=== PATIENT | male | born 1970 | race African-American/Black ===

== ENCOUNTER 2020-05-19 11:01 | Emergency (ER) | payer OTHER, SELFPAY ==
--- NOTE | ~2020-05-19 | CT_ITS ---
EXAMINATION: CT abdomen pelvis wo con DATE: 05/19/2020 13:29 INDICATION: Bilateral flank pain. Hematuria. TECHNIQUE: Computed tomography (CT) of the abdomen and pelvis was performed without intravenous contr ast. Automated exposure control and iterative reconstruction technique were employed. The dose-length product was 1645.45 mGy-cm. COMPARISON: CT abdomen and pelvis 08/22/2019, 05/23/2016 FINDINGS: The visualized portions of the lung bases demonstrate minimal atelectasis. No pleural effus ion. The heart size is normal. No pericardial effusion. There is diffuse hepatic steatosis. There are changes of cholecystectomy. Again seen is an accessory spleen abutting the tail of the pancreas. The pancreas, adrenal glands, and left kidney are normal. There is a 3 mm stone in right kidney. The pro state is mildly enlarged. There are no dilated loops of bowel. The appendix is normal. There are no p athologically enlarged lymph nodes. There is no free intraperitoneal fluid. There is mild thoracolumb ar spondylosis. IMPRESSION: 1. 3 mm nonobstructing right kidney stone. Reviewed, dictated and finalized at location B.
[2020-05-19 11:08] VITALS: BP 186/95; PULSE 77; RESP 18; TEMP 35.8; O2SAT 99
[2020-05-19 11:47] LABS: Basophils Percent Auto 0.4 % (0.2-1.2); Eosinophils Absolute Auto 0.1 K/mm3 (0-0.3); Eosinophils Percent Auto 1.3 % (0-4.4); Hematocrit 43.1 % (42.0-52.0); Immature Granulocyte Absolute 0.04 K/mm3 (0.00-0.031); Immature Granulocyte Percent A 0.6 % (0-0.5); Lymphocytes Absolute Auto 1.67 K/mm3 (0.9-3.2); Lymphocytes Percent Auto 23.7 % (18.3-44.2); Mean Corpuscular HGB Conc 30.2 g/dl (32-36); Mean Corpuscular Hemoglobin 23.3 pg (26-34); Mean Corpuscular Volume 77.4 fl (80-100); Mean Platelet Volume 10.1 fl (7.4-10.4); Monocytes Absolute Auto 0.5 K/mm3 (0.1-0.6); Monocytes Percent Auto 6.4 % (2.6-8.5); Neutrophils Absolute Auto 4.8 K/mm3 (1.3-6.7); Neutrophils Percent Auto 67.6 % (45.5-73.1); Platelet Count Result 323 k/mm3 (150-375); Red Blood Count 5.57 M/mm3 (4.6-6.20); Red Cell Distribution Width 15.4 % (11.5-14.5)
--- NOTE | 2020-05-19 12:00 | ED.BACK ---
HPI - Back Pain/Injury General Chief Complaint: Urogenital-Male <Kaci Dewitt PA-C - Last Filed: 05/19/20 14:59> Stated Complaint: flank pain <VANESSA Siddiqui Last Filed: 05/19/20 14:59> Time Seen by Provider: 05/19/20 11:33 <VANESSA Siddiqui Last Filed: 05/19/20 14:59> Source: patient <VANESSA Siddiqui Last Filed: 05/19/20 14:59> Mode of arrival: ambulatory <VANESSA Siddiqui Last Filed: 05/19/20 14:59> Limitations: no limitations <VANESSA Siddiqui Last Filed: 05/19/20 14:59> History of Present Illness HPI Narrative: This is a 49 year old male that presents to the ER for flank pain x 4 days. No known injury or trauma. Was told he had blood in his urine at his PCP office. Was started on Flomax, pain medication and an antibiotic due to his history of kidney stones. Reports the pain does feel similar to past kidney stones. Also reports nausea. Denies fever, abdominal pain, vomiting, or dysuria. <VANESSA Siddiqui Last Filed: 05/19/20 14:59> Related Data Home Medications: Home Medications Medication Instructions Recorded Confirmed metoclopramide HCl 10 mg PO BID 08/22/19 05/15/20 <VANESSA Siddiqui Last Filed: 05/19/20 14:59> Allergies/Adverse Reactions: Allergies Allergy/AdvReac Type Severity Reaction Status Date / Time gadobenic acid Allergy Severe Anaphylaxis Verified 05/19/20 11:17 [From CONTRAST-MRI] Iodinated Contrast Media Allergy Severe Anaphylaxis Verified 05/19/20 11:17 iohexol Allergy Severe Anaphylaxis Verified 05/19/20 11:17 [From CONTRAST - CT, XRAY] prochlorperazine AdvReac Severe Agitated Verified 05/19/20 11:17 <VANESSA Siddiqui Last Filed: 05/19/20 14:59> Review of Systems Review of Systems: Narrative: CONSTITUTIONAL: Denies fever GASTROINTESTINAL: Reports nausea. Denies abdominal pain, vomiting GENITOURINARY: Reports hematuria. Denies dysuria MUSCULOSKELETAL: Reports back pain <Kaci Dewitt PA-C - Last Filed: 05/19/20 14:59> All systems reviewed & are unremarkable except as noted in HPI and below <Kaci Dewitt PA-C - Last Filed: 05/19/20 14:59> [facility]LY [facility] Past Medical History Medical History: Medical History (Updated 05/19/20 @ 14:58 by Kaci Dewitt PA-C) Acute low back pain Bowel obstruction Concussion CPAP (continuous positive airway pressure) dependence Diverticulitis Erectile dysfunction HTN (hypertension) Kidney stone Migraines RIKI (obstructive sleep apnea) Peripheral neuropathy Primary insomnia Pulmonary embolism left lung following lap jae in July 2018, on Xarelto Sleep apnea T2DM (type 2 diabetes mellitus) <Kaci Dewitt PA-C - Last Filed: 05/19/20 14:59> Surgical History Surgical History: Surgical History (Updated 08/23/19 @ 10:16 by Godfrey Rojas MD) Hx of cholecystectomy laparoscopic cholecystectomy on July of 2018 <Kaci Dewitt PA-C - Last Filed: 05/19/20 14:59> Social History Social History: Social History Social History: Pt designates his , teagan means as his surrogate decision maker. Full code status. Smoking status: Never smoker Alcohol intake: never Substance use: never Substance use type: does not use Gender identity (if verbalized by the patient): Male Spiritual care concerns: No Agree to blood products: Yes <Kaci Dewitt PA-C - Last Filed: 05/19/20 14:59> Exam Narrative: Exam Narrative: GENERAL: Well-appearing, obese, and in no acute distress. HEAD: Normocephalic, atraumatic. EYES: EOMI. CHEST: Clear to auscultation. No respiratory distress. No wheezes rales or rhonchi HEART: Regular rate and rhythm. No murmur heard. Normal peripheral pulses. ABDOMEN: Soft, nontender, nondistended, normal active bowel sounds. No CVA tenderness BACK: No midline spinal tenderness EXTREMITIES: Normal range of motion.
[2020-05-19 12:03] LABS: Add Urine Microscopic? YES; Appearance Urine Cloudy (Clear); Bacteria Urine Trace /hpf; Bilirubin Urine Negative (Negative); Blood Urine 2+ (Negative); Color Urine Yellow (Yellow); Glucose Urine UA 1+ mg/dL (Negative); Ketones Urine Negative (Negative); Leukocyte Esterase Ur Negative LEU/UL (Negative); Mucus Urine Rare /lpf; Nitrate Urine Negative (Negative); Protein Urine 3+ mg/dL (Negative); RBC Urine >75 /hpf (0-2); Specific Grav Ur 1.018 (1.001-1.035); Squamous Epithelial Cell Urine Few /hpf (Few); Urobilinogen Urine Negative mg/dL (<2.0)
[2020-05-19 12:07] LABS: Anion Gap 11 mmol/L (8-16); Blood Urea Nitrogen 10 mg/dL (9-20); Calcium 8.8 mg/dL (8.4-10.2); Carbon Dioxide 28 mmol/L (22-30); Chloride 94 mmol/L (98-107); Estimated CRCL calculation 239 ml/min; Estimated Glomerular Filt Rate > 60; Glucose 233 mg/dL (75-110); Potassium 4.5 mmol/L (3.4-5.0); Sodium 133 mmol/L (137-145)
[2020-05-19] MEDS: SODIUM CHLORIDE 0.9% IV 1,000 ML 999 ML IV CONT (12:32)
[2020-05-19] MEDS: ONDANSETRON INJ 4 MG/2 ML VIAL IV PUSH (12:33)
[2020-05-19] MEDS: KETOROLAC 30 MG/ML VIAL (*BKC) IV PUSH (14:07)
[2020-05-19 15:21] VITALS: BP 167/96; PULSE 61; RESP 20; TEMP 36.6; O2SAT 96
== END 2020-05-19 15:29 | disposition home or self-care (01) ==
PROVIDERS: Physician Assistant; Emergency Provider Emergency Medicine; PCP Family Medicine
DX: N30.01 Acute cystitis with hematuria (principal); M54.5 Low back pain; Z87.442 Personal history of urinary calculi; E11.42 Type 2 diabetes mellitus with diabetic polyneuropathy; I10 Essential (primary) hypertension; G47.33 Obstructive sleep apnea (adult) (pediatric); Z86.711 Personal history of pulmonary embolism; N20.0 Calculus of kidney; Z79.01 Long term (current) use of anticoagulants
CPT/HCPCS: 36415; 74176; 80048; 81001; 85025; 87086; 96361; 96365; 96375; 99284; J0131; J1885; J2405; J7030

== ENCOUNTER 2020-06-05 16:35 | Outpatient (CLI) | payer OTHER, SELFPAY ==
--- NOTE | ~2020-06-05 | CT_ITS ---
EXAMINATION: CT lumbar spine wo con DATE: 06/05/2020 17:42 INDICATION: Low back pain rating to the left buttocks and down the left leg. TECHNIQUE: Computed tomography (CT) of the lumbar spine was performed without intravenous contrast. A utomated exposure control and iterative reconstruction technique were employed. The dose-length produ ct was 1211.02 mGy-cm. COMPARISON: CT lumbar spine 07/19/2012 FINDINGS: There is 6 degrees dextrocurvature of lumbar spine. There is mild chronic anterior wedging of T11-L1 vertebral bodies, likely physiologic. There is mildly decreased disc height at T11-T12. The following disc levels are specifically discussed: L1-L2: The disc does not extend beyond the endplate margin. There is mild bilateral facet joint osteo arthritis. There is no neural foraminal stenosis. There is no central canal stenosis. L2-L3: The disc does not extend beyond the endplate margin. There is mild bilateral facet joint osteo arthritis. There is no neural foraminal stenosis. There is no central canal stenosis. L3-L4: The disc does not extend beyond the endplate margin. There is mild bilateral facet joint osteo arthritis. There is no neural foraminal stenosis. There is no central canal stenosis. L4-L5: The disc is bulging. There is mild right facet joint osteoarthritis. There is mild bilateral n eural foraminal stenosis. There is mild central canal stenosis. L5-S1: The disc is bulging. There is mild bilateral facet joint osteoarthritis. There is mild bilater al neural foraminal stenosis. There is mild central canal stenosis. IMPRESSION: 1. Mild lower lumbar spondylosis, stable from 07/19/2012. Reviewed, dictated and finalized at location A.
== END 2020-06-05 16:36 | disposition home or self-care (01) ==
PROVIDERS: PCP Family Medicine
DX: M47.896 Other spondylosis, lumbar region (principal)
CPT/HCPCS: 72131

== ENCOUNTER → 2020-07-24 13:54 | Outpatient (CLI) | payer OTHER, SELFPAY ==
--- NOTE | ~2020-07-24 | MR_ITS ---
EXAMINATION: MR lumbar spine wo con DATE: 07/24/2020 14:52 INDICATION: Low back pain with radiculopathy and difficulty walking TECHNIQUE: Magnetic resonance imaging (MRI) of the lumbar spine was performed without intravenous con trast. Sequences included sagittal T2-weighted FSE, sagittal T2-weighted FS FSE, sagittal T1-weighted FSE, and axial T2-weighted FSE. COMPARISON: Lumbar spine CT dated 06/05/2020 FINDINGS: Mild lumbar dextrocurvature. 102 mm retrolisthesis L3 on L4 and L4 on L5 retrolisthesis L4 on L5. Mil d likely physiologic anterior wedging at T12, minimal at L1. Remaining lumbar vertebral body heights are normal. Prominent diffuse red marrow reexpansion throughout the spine and visualized pelvis with marrow remaining slightly hyperintense to the discs and skeletal muscle. Minimal disc desiccation and minimal disc height loss at L3-L4 and L4-L5. The conus medullaris terminates at T12-L1. There is nor mal signal in the caudal spinal cord. Paravertebral soft tissues are unremarkable. The following disc levels are specifically discussed: T12-L1: Disc is bulging. There is mild bilateral facet joint osteoarthritis. There is no neural omari inal stenosis. There is mild central canal stenosis. L1-L2: Disc is mildly bulging. There is mild bilateral facet joint osteoarthritis. There is no neural foraminal stenosis. There is minimal central canal stenosis. L2-L3: The disc does not extend beyond the endplate margin. There is mild bilateral facet joint osteo arthritis. There is no neural foraminal stenosis. There is no central canal stenosis. L3-L4: The disc does not extend beyond the endplate margin. There is mild bilateral facet joint osteo arthritis. There is minimal bilateral neural foraminal stenosis. There is no central canal stenosis. L4-L5: Disc is minimally bulging. There is mild bilateral facet joint osteoarthritis. There is mild r ight and moderate left neural foraminal stenosis. There is no central canal stenosis. L5-S1: Disc is minimally bulging. There is mild bilateral facet joint osteoarthritis. There is mild l eft and minimal right neural foraminal stenosis. There is no central canal stenosis. IMPRESSION: 1. Mild lumbar spondylosis. Reviewed, dictated and finalized at location B. IMPRESSION: 1. Mild lumbar spondylosis.
== END ==
PROVIDERS: PCP Family Medicine
DX: M47.816 Spondylosis without myelopathy or radiculopathy, lumbar region (principal)
CPT/HCPCS: 72148

== ENCOUNTER 2020-09-24 | Inpatient (IN) | payer OTHER, SELFPAY ==
[2020-09-24] VITALS (10 sets, daily range): BP systolic 120–180; BP diastolic 68–117; PULSE 71–93; RESP 13–22; TEMP 36.1–37; O2SAT 90–99
--- NOTE | ~2020-09-24 | XR_ITS ---
XR abdomen NG/feed tube rechec DATE: 09/24/2020 15:15 INDICATION: NG tube TECHNIQUE: 2 AP views COMPARISON: 09/24/2020 water soluble upper GI with small bowel series FINDINGS: A nasogastric tube appears to be present in the distal stomach. There is radiopaque contras t material in the stomach, small bowel and colon. IMPRESSION: NG tube in stomach Reviewed, dictated and finalized at Location A. Reviewed, dictated and finalized at location B. R FULFILLMENT SPECIALIST IMPRESSION: NG tube in stomach
--- NOTE | ~2020-09-24 | XR_ITS ---
EXAMINATION: XR sm bowel follow through [facility] DATE: 09/26/2020 10:22 INDICATION: Small bowel obstruction. TECHNIQUE: Oral contrast was administered, and a time course of radiographs of the abdomen was obtain ed. Fluoroscopy was not performed. Fluoroscopy exposure time was 0 minutes. The total number of image s was 7. COMPARISON: Small bowel series 09/24/2020, CT abdomen and pelvis 09/24/2020 FINDINGS: The nasogastric tube tip is in the stomach. There is oral contrast in the colon from the prior small bowel series. Surgical clips in the right upper quadrant are likely from cholecystectomy. There are m ildly dilated loops of small bowel. Transit time from the stomach to proximal colon was approximately 2 hours. IMPRESSION: 1. Mildly dilated small bowel with interval improvement with normal transit time to the colon, consis tent with adynamic ileus. Reviewed, dictated and finalized at location A. WARE MAKER IMPRESSION: 1. Mildly dilated small bowel with interval improvement with normal transit delilah e to the colon, consistent with adynamic ileus.
--- NOTE | ~2020-09-24 | XR_ITS ---
XR chest 1V portable DATE: 09/25/2020 16:01 INDICATION: Chest pain, shortness of breath, hypertension TECHNIQUE: Portable upright AP views on 09/25/2020 at 1551 and 1552 hours COMPARISON: 07/19/2018 two-view chest FINDINGS: Heart size appears within normal limits. Mild patchy infiltrate is suggested in the left lower lung field. The lungs otherwise appear clear. N o pleural effusion or pulmonary vascular congestion or pneumothorax. An NG tube is present but penetration is insufficient for evaluation of its position. IMPRESSION: Mild left lower lung infiltrate Reviewed, dictated and finalized at location B. NICKER
--- NOTE | ~2020-09-24 | XR_ITS ---
EXAMINATION: XR abdomen NG/feed tube insert DATE: 09/24/2020 04:01 INDICATION: Nasogastric tube placement. TECHNIQUE: A supine view of the abdomen was obtained on 2 radiographs. COMPARISON: CT abdomen and pelvis 09/24/2020 FINDINGS: The right lateral aspect of the abdomen is excluded. There are dilated loops of small bowel . The colon is decompressed. The nasogastric tube tip is in the stomach. IMPRESSION: 1. Nasogastric tube tip in the stomach. 2. Dilated small bowel, most likely adynamic ileus. Reviewed, dictated and finalized at location A. ECTOR MACHINE PARTS
--- NOTE | ~2020-09-24 | CT_ITS ---
EXAMINATION: CT abdomen pelvis wo con DATE: 09/24/2020 01:17 INDICATION: Abdominal pain. TECHNIQUE: Computed tomography (CT) of the abdomen and pelvis was performed without intravenous contr ast. Automated exposure control and iterative reconstruction technique were employed. The dose-length product was 1587.19 mGy-cm. COMPARISON: CT abdomen and pelvis 05/19/2020 FINDINGS: The visualized portions of the lung bases demonstrate minimal atelectasis. No pleural effus ion. The heart size is normal. No pericardial effusion. There is diffuse hepatic steatosis. There are changes of cholecystectomy. The spleen, pancreas, adrenal glands, and left kidney are normal. There are 2 stones in right kidney measuring up to 4 mm. There are multiple dilated loops of small bowel wi thout focal transition point. The colon is decompressed. The appendix is normal. There are no patholo gically enlarged lymph nodes. There is no free intraperitoneal fluid. There is mild thoracolumbar spo ndylosis. IMPRESSION: 1. Dilated small bowel without focal transition point, consistent with adynamic ileus or less likely partial obstruction. Reviewed, dictated and finalized at location A. ROOM DINING SERVER
--- NOTE | ~2020-09-24 | XR_ITS ---
EXAMINATION: XR abdomen/kub 1V DATE: 09/26/2020 06:28 INDICATION: Small bowel obstruction. TECHNIQUE: A supine view of the abdomen on 2 radiographs was obtained. COMPARISON: CT abdomen and pelvis 09/24/2020 FINDINGS: There is a dilated loop of small bowel in the lower abdomen. There is oral contrast in the colon, which is normal in caliber. The nasogastric tube tip is in the distal stomach. IMPRESSION: 1. Dilated small bowel with improvement, consistent with adynamic ileus versus partial small bowel ob struction. Reviewed, dictated and finalized at location A. E PREVENTION WORKER IMPRESSION: 1. Dilated small bowel with improvement, consistent with adynamic ileus versus partial small bowel obstruction.
--- NOTE | ~2020-09-24 | XR_ITS ---
EXAMINATION: XR abdomen/kub 1V DATE: 09/27/2020 07:39 INDICATION: Small bowel obstruction. TECHNIQUE: A supine view of the abdomen on 4 radiographs was obtained. COMPARISON: Small bowel series 09/26/2020 FINDINGS: There are no dilated loops of bowel. There is oral contrast in the colon. IMPRESSION: 1. Normal bowel gas pattern. Reviewed, dictated and finalized at location A. STAFF ACCOUNTANT
--- NOTE | ~2020-09-24 | XR_ITS ---
EXAMINATION: XR abdomen/kub 1V DATE: 09/25/2020 09:08 INDICATION: Small bowel obstruction. TECHNIQUE: A supine view of the abdomen on 5 radiographs was obtained. COMPARISON: CT abdomen and pelvis 09/24/2020, small bowel series 09/24/2020 FINDINGS: There are dilated loops of small bowel. The colon is decompressed. There is oral contrast i n the colon. The nasogastric tube tip is in the stomach. IMPRESSION: 1. Persistently dilated small bowel, consistent with adynamic ileus versus partial small bowel obstru ction. Reviewed, dictated and finalized at location A. ONAL SALES CONSULTANT IMPRESSION: 1. Persistently dilated small bowel, consistent with adynamic ileus versus part ial small bowel obstruction.
--- NOTE | ~2020-09-24 | XR_ITS ---
UGI-AIR CONTRAST/SMALL BOWEL INDICATION: Generalized abdominal pain. Nausea. TECHNIQUE: Serial images of the upper GI tract structures and small bowel are performed following NG tube administration of water-soluble contrast. COMPARISON: 08/23/2019 FINDINGS: NG tube in the stomach. There is delayed passage of contrast through the small bowel to the colon of less than 3 hours. There are dilated loops of duodenum and jejunum with the distal small ebonie wel being decompressed. Findings compatible with partial small bowel obstruction. IMPRESSION: 1: Partial small bowel obstruction. Definite transition site not identified, although likely in the m id small bowel. Reviewed, dictated and finalized at location A. DINGS AND GROUNDS COORDINATOR IMPRESSION: 1: Partial small bowel obstruction. Definite transition site not identified, al though likely in the mid small bowel.
--- NOTE | 2020-09-24 00:10 | ECG_ITS ---
Measurements Intervals [place] Rate: 89 P: 5 OR: 118 QRS: 42 QRSD: 93 T: -9 QT: 359 QTc: 439 Interpretive Statements SINUS RHYTHM WITH SHORT OR INTERVAL BORDERLINE ST-T WAVE ABNORMALITY- ANTEROLAT/INF LEADS BASELINE ARTIFACT- I, III, AVR, AVL, AVF, V1-V6 BORDERLINE ECG Electronically Signed On 09-24-2020 11:44:25 HEART DOCTOR by Rom Bills D.O.
[2020-09-24] MEDS: FAMOTIDINE 20 MG/2 ML VIAL IV PUSH ×3 (00:21→20:39)
[2020-09-24] MEDS: ONDANSETRON INJ 4 MG/2 ML VIAL IV PUSH ×2 (00:21→08:09)
[2020-09-24] MEDS: SODIUM CHLORIDE 0.9% IV 1,000 ML 999 ML IV CONT (00:22)
[2020-09-24] MEDS: HYDROmorphone HCL INJ (*CRX) 1 MG/ML SYR IV PUSH ×6 (00:22→20:39)
[2020-09-24 00:30] LABS: Basophils Percent Auto 0.3 % (0.2-1.2); Eosinophils Absolute Auto 0.1 K/mm3 (0-0.3); Eosinophils Percent Auto 1.7 % (0-4.4); Hematocrit 45.2 % (42.0-52.0); Hemoglobin 14.1 g/dL (14.0-18.0); Immature Granulocyte Absolute 0.02 K/mm3 (0.00-0.031); Immature Granulocyte Percent A 0.3 % (0-0.5); Lymphocytes Absolute Auto 2.63 K/mm3 (0.9-3.2); Lymphocytes Percent Auto 36.9 % (18.3-44.2); Mean Corpuscular HGB Conc 31.2 g/dl (32-36); Mean Corpuscular Hemoglobin 24.4 pg (26-34); Mean Corpuscular Volume 78.3 fl (80-100); Mean Platelet Volume 10.4 fl (7.4-10.4); Monocytes Absolute Auto 0.7 K/mm3 (0.1-0.6); Monocytes Percent Auto 9.3 % (2.6-8.5); Neutrophils Absolute Auto 3.7 K/mm3 (1.3-6.7); Neutrophils Percent Auto 51.5 % (45.5-73.1); Platelet Count Result 369 k/mm3 (150-375); Red Blood Count 5.77 M/mm3 (4.6-6.20); Red Cell Distribution Width 16.1 % (11.5-14.5); White Blood Count 7.1 K/mm3 (4.5-10.0)
[2020-09-24 00:44] LABS: Alanine Aminotransferase 26 U/L (4-50); Albumin Level 4.4 g/dL (3.5-5.1); Alkaline Phosphatase 83 U/L (38-126); Anion Gap 9 mmol/L (8-16); Aspartate Amino Transferase 27 U/L (17-59); Bilirubin,Total 0.7 mg/dL (0.2-1.3); Blood Urea Nitrogen 10 mg/dL (9-20); Calcium 9.4 mg/dL (8.4-10.2); Carbon Dioxide 26 mmol/L (22-30); Chloride 102 mmol/L (98-107); Estimated CRCL calculation 184 ml/min; Estimated Glomerular Filt Rate > 60; Glucose 166 mg/dL (75-110); Lipase 36 U/L (23-300); Potassium 4.2 mmol/L (3.4-5.0); Sodium 137 mmol/L (137-145)
--- NOTE | 2020-09-24 02:14 | ED.GENADULT ---
HPI - General Adult General Chief complaint: Abdominal Pain Stated complaint: stomach pain Time Seen by Provider: 09/24/20 00:13 History of Present Illness HPI narrative: Patient is a 50-year-old gentleman who presents emerged from with chief complaint of abdominal pain. Patient reports he has prior history of diabetic gastroparesis history of small bowel obstructions and states that since Monday he has been having increasing abdominal pain. Patient states he has had diarrhea and states that his abdomen has been cramping up. The patient states it feels like whenever he has had bowel obstructions before in the past. The patient states the pain is not improved by anything nor is it worsened by anything.. Related Data Home Medications Medication Instructions Recorded Confirmed metoclopramide HCl 10 mg PO BID 08/22/19 05/15/20 Allergies Allergy/AdvReac Type Severity Reaction Status Date / Time gadobenic acid Allergy Severe Anaphylaxis Verified 07/15/20 14:59 [From CONTRAST-MRI] Iodinated Contrast Media Allergy Severe Anaphylaxis Verified 07/15/20 14:59 iohexol Allergy Severe Anaphylaxis Verified 07/15/20 14:59 [From CONTRAST - CT, XRAY] prochlorperazine AdvReac Severe Agitated Verified 07/15/20 14:59 Review of Systems Review of Systems: Narrative: CONSTITUTIONAL: Denies fever, chills, or sweats. EYES: Denies visual changes, redness, or discharge. ENT: Denies rhinorrhea, congestion, sore throat, or otalgia. CARDIOVASCULAR: Denies chest pain, palpitations, or edema. RESPIRATORY: Denies cough or dyspnea. GASTROINTESTINAL: See HPI GENITOURINARY: Denies dysuria or hematuria. SKIN: Denies rash or itching. MUSCULOSKELETAL: Denies back pain, joint pain, or myalgia. NEUROLOGIC: Denies headache, numbness, or weakness. PSYCHIATRIC: Denies anxiety or depression. A 10 system review of systems was completed on the patient and is negative except for what is stated in the HPI. Nursing and ancillary documentation was reviewed. [facility] Past Medical History Medical History Acute low back pain Bowel obstruction Concussion CPAP (continuous positive airway pressure) dependence Diverticulitis Erectile dysfunction HTN (hypertension) Kidney stone Migraines RIKI (obstructive sleep apnea) Peripheral neuropathy Primary insomnia Pulmonary embolism left lung following lap jae in July 2018, on Xarelto Sleep apnea T2DM (type 2 diabetes mellitus) Surgical History Surgical History Hx of cholecystectomy laparoscopic cholecystectomy on July of 2018 Family History Family History Mother Congestive heart failure Diabetes mellitus Social History Social History Social History: Pt designates his , teagan means as his surrogate decision maker. Full code status. Smoking status: Never smoker Alcohol intake: never Substance use: never Substance use type: does not use Gender identity (if verbalized by the patient): Male Spiritual care concerns: No Agree to blood products: Yes Exam Narrative: Exam Narrative: GENERAL: Well-appearing, well-nourished, and in no acute distress. HEAD: Normocephalic, atraumatic. EYES: PERRLA and EOMI. ENT: Nares clear, no rhinorrhea or epistaxis. Mucous membranes moist. NECK: Supple. CHEST: Clear to auscultation. No respiratory distress. HEART: Regular rate and rhythm. No murmur heard. Normal peripheral pulses. ABDOMEN: Soft, diffusely tender to palpation, nondistended, normal active bowel sounds. EXTREMITIES: Normal range of motion. No edema. SKIN: Warm, dry, no rash. NEURO: No focal deficits. Alert and oriented x3. PSYCH: Normal mood and affect. Course Course Emergency Course: EKG shows sinus rhythm rate of [address] [facility]aren
--- NOTE | 2020-09-24 02:24 | PM.IMHP ---
H&P: HPI History of Present Illness Date/Time: 09/24/20 02:24 Narrative: Jerome Means is a 50 year old male [facility] Past Medical History Medical History Acute low back pain Bowel obstruction Concussion CPAP (continuous positive airway pressure) dependence Diverticulitis Erectile dysfunction HTN (hypertension) Kidney stone Migraines RIKI (obstructive sleep apnea) Peripheral neuropathy Primary insomnia Pulmonary embolism left lung following lap jae in July 2018, on Xarelto Sleep apnea T2DM (type 2 diabetes mellitus) Surgical History Surgical History Hx of cholecystectomy laparoscopic cholecystectomy on July of 2018 Family History Family History Mother Congestive heart failure Diabetes mellitus Social History Social History Social History: Pt designates his , teagan means as his surrogate decision maker. Full code status. Smoking status: Never smoker Alcohol intake: never Substance use: never Substance use type: does not use Gender identity (if verbalized by the patient): Male Spiritual care concerns: No Agree to blood products: Yes Meds Home Medications and Allergies Home Medications Medication Instructions Recorded Confirmed Type metoclopramide HCl 10 mg PO BID 08/22/19 05/15/20 History tadalafil 20 mg tablet 20 mg PO DAILY PRN #7 tablet 11/19/19 05/15/20 Rx fluconazole 150 mg tablet 150 mg PO ONCE #1 tablet 11/20/19 05/15/20 Rx ertugliflozin 15 mg tablet 15 mg PO QAM #30 tablet 11/27/19 05/15/20 Rx amlodipine 5 mg tablet See Rx Instructions .ROUTE 04/20/20 05/15/20 Rx .COMPLEX #90 tablet acetaminophen 300 mg-codeine 30 mg 1 tablet PO Q8H PRN #30 tablet 05/26/20 Rx tablet rivaroxaban 20 mg tablet See Rx Instructions .ROUTE 06/11/20 Rx .COMPLEX #30 tablet insulin aspart U-100 100 unit/mL See Rx Instructions .ROUTE 06/18/20 Rx subcutaneous solution .COMPLEX #50 ml insulin glargine 100 unit/mL (3 See Rx Instructions .ROUTE 07/15/20 07/15/20 Rx mL) subcutaneous pen .COMPLEX #45 ml suvorexant 10 mg tablet 10 mg PO ONCE #30 tablet 07/22/20 Rx irbesartan 150 1 tablet PO DAILY #90 tablet 08/11/20 Rx mg-hydrochlorothiazide 12.5 mg tablet nebivolol 10 mg tablet See Rx Instructions .ROUTE 08/11/20 Rx .COMPLEX #30 tablet gabapentin 300 mg capsule See Rx Instructions .ROUTE 09/14/20 Rx .COMPLEX #270 cap Allergies Allergy/AdvReac Type Severity Reaction Status Date / Time gadobenic acid Allergy Severe Anaphylaxis Verified 07/15/20 14:59 [From CONTRAST-MRI] Iodinated Contrast Media Allergy Severe Anaphylaxis Verified 07/15/20 14:59 iohexol Allergy Severe Anaphylaxis Verified 07/15/20 14:59 [From CONTRAST - CT, XRAY] prochlorperazine AdvReac Severe Agitated Verified 07/15/20 14:59 Vital Signs Vital Signs - 24 hr 09/24/20 00:03 09/24/20 01:26 09/24/20 02:00 Temperature 36.6 C Pulse Rate 93 78 79 Respiratory Rate 22 H 15 18 Blood Pressure 139/117 H 159/78 H 159/73 H Pulse Oximetry 99 97 97 H&P: Results Labs Labs: Short CBC 09/24/20 Range/Units 00:24 WBC 7.1 (4.5-10.0) K/mm3 Hgb 14.1 (14.0-18.0) g/dL Hct 45.2 (42.0-52.0) % Plt Count 369 (150-375) k/mm3 [facility] 09/24/20 00:24 Sodium 137 Potassium 4.2 Chloride 102 Carbon Dioxide 26 BUN 10 Creatinine 0.80 Glucose 166 H Calcium 9.4 Liver Function 09/24/20 Range/Units 00:24 Total Bilirubin 0.7 (0.2-1.3) mg/dL AST 27 (17-59) U/L ALT 26 (4-50) U/L Alkaline Phosphatase 83 (38-126) U/L Albumin 4.4 (3.5-5.1) g/dL
[2020-09-24 03:42] LABS: Add Urine Microscopic? YES; Appearance Urine Cloudy (Clear); Bacteria Urine Trace /hpf; Bilirubin Urine Negative (Negative); Blood Urine Negative (Negative); Calcium Oxalate Crystals Urine Present /hpf; Color Urine Amber (Yellow); Glucose Urine UA Negative (Negative); Ketones Urine Negative (Negative); Leukocyte Esterase Ur Trace LEU/UL (Negative); Mucus Urine Heavy /lpf; Nitrate Urine Negative (Negative); Protein Urine 2+ mg/dL (Negative); Squamous Epithelial Cell Urine Occasional /hpf (Few); WBC Urine 21-30 /hpf
[2020-09-24 03:47] LABS: Specific Grav Ur 1.031 (1.001-1.035)
--- NOTE | 2020-09-24 04:25 | ADMGEN ---
This patient, Jerome Olson, was admitted to 3 [facility] Surg Room 315-01. Patient/family oriented to hospital policies and general routines including ID bracelet, bed and alarms, visiting hours, pain management, procedures, bathroom and other care routines, personal items, smoking policy, room service/diet, and visiting hours. Information on how to activate the Rapid Response Team has been discussed. Patient/Family are encouraged to report perceived risks to care and to ask questions if they do not understand what they are told or what they should do.
[2020-09-24] MEDS: SODIUM CHLORIDE 0.9% IV 1,000 ML 125 ML IV CONT ×2 (04:51→17:39)
--- NOTE | 2020-09-24 07:03 | PM.CNGS ---
Assessment and Plan Assessment and plan (1) Acute generalized abdominal pain: Code(s): R10.84 - Generalized abdominal pain Status: Acute Assessment and Plan: despite the CT findings of a disparity in the small bowel dilatation, the patient is having diarrhea and has a history of recurrent episodes of abdominal pain and these abnormalities. I doubt he has a small-bowel obstruction. Will advance the NG tube so it is appropriately in the stomach. Will go ahead and get Gastrografin upper GI small-bowel follow-through today which should tell us if and obstruction exists. If no obstruction, would treat for enterocolitis. Extremely poor surgical candidate. (2) Diabetic gastroparesis: Code(s): E11.43 - Type 2 diabetes mellitus with diabetic autonomic (poly)neuropathy; K31.84 - Gastroparesis Status: Chronic (3) Noncompliance: Code(s): Z91.19 - Patient's noncompliance with other medical treatment and regimen Status: Chronic (4) Morbid obesity with BMI of 60.0-69.9, adult: Code(s): E66.01 - Morbid (severe) obesity due to excess calories; Z68.44 - Body mass index [BMI] 60.0-69.9, adult Status: Chronic (5) Chronic anticoagulation: Code(s): Z79.01 - group home (current) use of anticoagulants Status: Chronic Assessment and Plan: Xarelto on hold. Prophylactic dose lovenox will be started. Discussed with JAYASHREE Lane, hospitalist. (6) T2DM (type 2 diabetes mellitus): Code(s): E11.9 - Type 2 diabetes mellitus without complications Status: Chronic (7) Long-term insulin use: Code(s): Z79.4 - group home (current) use of insulin Status: Chronic (8) RIKI (obstructive sleep apnea): Code(s): G47.33 - Obstructive sleep apnea (adult) (pediatric) Status: Chronic (9) History of pulmonary embolism: Code(s): Z86.711 - Personal history of pulmonary embolism Status: Chronic History of Present Illness Consult details Consult date: 09/24/20 Reason for consult: abdominal pain Requesting physician: Jorge Rosales MD Narrative: Patient is a 50-year-old man who came to the emergency room last night with abdominal pain. The pain started Monday, 3 days ago and has been increasing. He has had some diarrhea and abdominal cramping. He was evaluated in the emergency room and found to have dilated loops of small bowel with some decompressed more distal loops in the ileum. He was also found to have several fluid levels in the colon. Due to the disparity in more proximal small bowel dilatation and more collapsed small bowel distally, the patient is thought to possibly have a partial small-bowel obstruction. Enteritis and colitis are also possibilities. Nasogastric tube was placed and we were asked to consult on the patient due to the possibility of a partial small-bowel obstruction. Review of the patient's old records was done. He has extreme morbid obesity and his weight is doing nothing but increasing. His BMI was 61 2 years ago, now it is 66. He was seen in his primary care physician's office 2 months ago and has gained 10 lb since then. Current weight is nearly 490 lb. He is 6 ft tall. Previous episodes of abdominal pain with possible bowel obstruction have occurred since at least 2017. In July of 2018, he was admitted with 1 of these episodes and was noted to have gallstones and evidence of cholecystitis. He had a laparoscopic cholecystectomy at that time. It is thought he has gastroparesis and delayed small bowel transit. Following his laparoscopic cholecystectomy, he developed venous thromboembolism and pulmonary embolism. He has remained on Xarelto anticoagulation since then. He is also an insulin-dependent diabetic. Both in 2018 and in 2019 he was recommended to follow up at [facility] for drastic weight reduction measures. This has never occurred. His last admission for this particular type of problem was just over a year
[2020-09-24 08:09] LABS: Glucose Point of Care 96 (65-105)
--- NOTE | 2020-09-24 08:34 | PM.IMHP ---
H&P: HPI History of Present Illness Date/Time: 09/24/20 08:34 Chief Complaint: Abdominal pain Narrative: Jerome Olson is a 50 year old obese male with a history of ileus/small-bowel obstructions, DMII, HTN and gastroparesis who presented to the ED on 09/23 from home with complaints abdominal pain. Patient states pain started on Friday 09/21 and started centrally in his abdomen and described it as a cramping pain. As the days progressed, this pain slowly intensified, with him having associated bouts of non-bloody diarrhea and dry heaves. He states he began to eat less and less and try to drink as much water as possible given his diarrhea. On Monday, 09/23, at roughly 2:00 am he had his last BM and since then he reports not having BMs nor passing any gas and having more dry heaves. His pain intensified throughout the day to a point were his pain was 10/10, prompting him to present to the ED for evaluation. He states the pain is similar to bowel obstructions in the past. He notes he has had these bowel obstructions at least 3 times a year, but has become less frequent, noting symptoms arising only once a year now. He notes that his pain is better with IV pain medication, noting his pain has lessoned to 8/10. No nausea currently. He has noted dizziness and weakness as well, and some chest pain he associated with is dry heaves. Nothing really has made his pain better/worse other than IV pain medication improving his symptoms. He notes he has been compliant with his medication up until yesterday morning. Of note, he does mention that his sugars have been running higher as well recently, even though he tries to maintain a healthy diet. He has progressively gained weight over the past years despite diet modification/exercise and has discussed alternatives with his PCP but states his insurance would not pay for invasive procedures such as gastric bypass. No other complaints at this time. Denies f/c/s, myalgias/arthralgias, headaches, changes in v/h, current cp/palpitations, sob/cough, dysuria, hematuria, cloudy urine, calf pain/swelling. While in the ED, CT abd/pelvis revealed dilated small bowel without focal transition point, consistent with adynamic ileus or less likely partial obstruction. NG tube was placed and he was placed on NPO diet. Dr. George (General Surgery) was consulted from ED. Review of Systems Review of Systems: All systems reviewed & are unremarkable except as noted in HPI and below PMFSH Past Medical History Medical History Acute low back pain Bowel obstruction Concussion CPAP (continuous positive airway pressure) dependence Diverticulitis Erectile dysfunction HTN (hypertension) Kidney stone Migraines RIKI (obstructive sleep apnea) Peripheral neuropathy Primary insomnia Pulmonary embolism left lung following lap jae in July 2018, on Xarelto Sleep apnea T2DM (type 2 diabetes mellitus) Surgical History Surgical History Hx of cholecystectomy laparoscopic cholecystectomy on July of 2018 Family History Family History Mother Congestive heart failure Diabetes mellitus Social History Social History Social History: Pt designates his Eula as his surrogate decision maker. Full code status. His PCP is Dr. Forde. He lives at home with his and daughter. Smoking status: Never smoker Alcohol intake: never Substance use: never Substance use type: does not use Gender identity (if verbalized by the patient): Male Spiritual care concerns: No Agree to blood products: Yes Meds Home Medications and Allergies Home Medications Medication Instructions Recorded Confirmed Type metoclopramide HCl 10 mg PO BID 08/22/19 05/15/20 History tadalafil 20 mg tablet 20 mg PO
[2020-09-24 13:24] LABS: Glucose Point of Care 156 (65-105)
[2020-09-24 17:46] LABS: Glucose Point of Care 180 (65-105)
[2020-09-24] MEDS: ENOXAPARIN 40 MG/0.4 ML SYRINGE SUB-Q (20:40)
[2020-09-25] VITALS (10 sets, daily range): BP systolic 140–202; BP diastolic 61–99; PULSE 72–90; RESP 16–24; TEMP 35.9–36.9; O2SAT 96–99
[2020-09-25] MEDS: ONDANSETRON INJ 4 MG/2 ML VIAL IV PUSH ×2 (00:23→20:22)
[2020-09-25] MEDS: SODIUM CHLORIDE 0.9% IV 1,000 ML 125 ML IV CONT ×3 (00:48→18:17)
[2020-09-25 00:55] LABS: Glucose Point of Care 177 (65-105)
[2020-09-25] MEDS: HYDROmorphone HCL INJ (*CRX) 1 MG/ML SYR IV PUSH ×3 (02:05→20:15)
[2020-09-25 05:30] LABS: Glucose Point of Care 168 (65-105)
[2020-09-25 06:22] LABS: Hematocrit 40.8 % (42.0-52.0); Hemoglobin 12.1 g/dL (14.0-18.0); Mean Corpuscular HGB Conc 29.7 g/dl (32-36); Mean Corpuscular Volume 80.8 fl (80-100); Mean Platelet Volume 9.8 fl (7.4-10.4); Platelet Count Result 277 k/mm3 (150-375); Red Blood Count 5.05 M/mm3 (4.6-6.20); Red Cell Distribution Width 15.9 % (11.5-14.5); White Blood Count 5.9 K/mm3 (4.5-10.0)
[2020-09-25 06:32] LABS: Anion Gap 7 mmol/L (8-16); Blood Urea Nitrogen 10 mg/dL (9-20); Calcium 8.4 mg/dL (8.4-10.2); Carbon Dioxide 27 mmol/L (22-30); Chloride 105 mmol/L (98-107); Estimated CRCL calculation 208 ml/min; Estimated Glomerular Filt Rate > 60; Glucose 181 mg/dL (75-110); Magnesium 1.9 mg/dL (1.6-2.3); Potassium 3.9 mmol/L (3.4-5.0); Sodium 139 mmol/L (137-145)
[2020-09-25 06:43] LABS: Hemoglobin A1C 9.2 % (<5.7)
[2020-09-25] MEDS: FAMOTIDINE 20 MG/2 ML VIAL IV PUSH ×2 (09:29→20:40)
[2020-09-25] MEDS: ENOXAPARIN 40 MG/0.4 ML SYRINGE SUB-Q ×2 (09:30→20:26)
--- NOTE | 2020-09-25 11:41 | PM.PNGS ---
Progress Note: A&P Assessment and Plan (1) Small bowel obstruction: Code(s): K56.609 - Unspecified intestinal obstruction, unspecified as to partial versus complete obstruction Status: Acute Assessment and Plan: Seems to be improving. Continue NG suction and IV fluids. Follow serial exam, plain films and labs. Hopefully will resolve. Discussed with Max Soni (2) Morbid obesity with BMI of 60.0-69.9, adult: Code(s): E66.01 - Morbid (severe) obesity due to excess calories; Z68.44 - Body mass index [BMI] 60.0-69.9, adult Status: Chronic Assessment and Plan: Increases surgical risk. (3) T2DM (type 2 diabetes mellitus): Code(s): E11.9 - Type 2 diabetes mellitus without complications Status: Chronic Assessment and Plan: Hemoglobin A1c 9.2. Blood sugars are pretty well controlled in the upper 100s. 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 On 40 mg Lovenox b.i.d. for VTE prophylaxis Subjective Subjective Date/Time Seen: 09/25/20 11:41 Patient reports: still having pain, pain is less, bowel movement, afebrile and other (Mild headache, getting his appetite back) Review of Systems Review of Systems: All systems reviewed & are unremarkable except as noted in HPI and below Constitutional: Constitutional: Reports headache(s) Cardiovascular: Cardiovascular: Denies chest pain and Denies dyspnea Respiratory: Respiratory: Denies cough and Denies dyspnea Gastrointestinal: Gastrointestinal: Reports as per HPI Neurologic: Reports headache(s) Psychiatric: Psychiatric: Denies confusion Exam Const: General: comfortable and no acute distress; No confusion Orientation/consciousness: patient oriented x3 and No confusion GI: Inspection: distended and obesity GI Palp: Yes Soft to palpation, Yes Tenderness to palpation present (GI) (Less tender), No Guarding due to palpation present (GI) and No Rebound tenderness present Neuro: General: patient oriented x3, no focal motor deficits and No confusion Extrem: General: no calf tenderness and no edema Psych: Affect: normal affect Insight: Good insight present (Psych) Judgement: Good judgement present (Psych) Objective Data Vital Signs Vital Signs: Vital Signs - 24 hr 09/24/20 14:00 09/24/20 22:00 09/25/20 02:30 Temperature 36.8 C 37.0 C Pulse Rate 93 76 Respiratory Rate 20 22 H Blood Pressure 132/69 176/88 H 157/65 H Pulse Oximetry 94 90 09/25/20 06:00 09/25/20 07:24 Temperature 36.1 C L Pulse Rate 72 Respiratory Rate 24 H Blood Pressure 179/86 H 152/62 H Pulse Oximetry 96 Intake/Output Intake/Output: Intake & Output 09/22/20 09/23/20 09/24/20 09/25/20 23:59 23:59 23:59 23:59 Intake Total 2240 1999 Output Total 1975 Balance 265 1999 Meds/Results Medications: Active Medications Generic Name Dose Route Start Last Admin Trade Name Freq PRN Reason Stop Dose Admin Dextrose 12.5 gm 09/24/20 07:48 Dextrose 50% 25 Gm/50 Ml Syringe IV PUSH PRN PRN Hypoglycemia Protocol Enoxaparin Sodium 40 mg 09/24/20 21:00 09/25/20 09:30 Enoxaparin 40 Mg/0.4 Ml Syringe SUB-Q 40 mg Q12HR MILKA Administration Famotidine 20 mg 09/24/20 09:00 09/25/20 09:29 Famotidine 20 Mg/2 Ml Vial IV PUSH 20 mg Q12HR MILKA Administration Glucagon 1 mg 09/24/20 07:48 Glucagon For Inj 1 Mg Vial IM PRN PRN Hypoglycemia Protocol Glucose 15 gm 09/24/20 07:48 Glucose Oral Gel 15 Gm Of Glucse In 37.5 Gm Tube PO PRN PRN Hypoglycemia Protocol Hydralazine HCl 10 mg 09/24/20 16:29 Hydralazine Hcl 20 Mg/Ml Vial IV PUSH Q8H PRN Blood Pressure - High Hydromorphone HCl 1 mg
--- NOTE | 2020-09-25 11:44 | PM.IMPN ---
Progress Note: A&P Assessment and Plan (1) Acute generalized abdominal pain: Code(s): R10.84 - Generalized abdominal pain Status: Acute Assessment and Plan: Likely secondary to SBO vs ileus given abdominal imaging . Pain reasonable at this moment. NG tube in place and on NPO diet. Dr. George consulted from the ED and following; appreciate recommendations Will continue NG tube/NPO diet for now Will await further rec from General Surgery Monitor closely Pain control with IV pain meds as needed (2) Chronic anticoagulation: Code(s): Z79.01 - intermodal dispatcher (current) use of anticoagulants Status: Chronic Assessment and Plan: Patient has history of PE in 2018 and is on chronic a/c with Xarelto since then. No evidence of bleeding Hold a/c while NPO, resume when appropriate. Will do Lovenox 40 mg BID for VTE ppx for now Monitor for s/sx of bleeding (3) Morbid obesity with BMI of 60.0-69.9, adult: Code(s): E66.01 - Morbid (severe) obesity due to excess calories; Z68.44 - Body mass index [BMI] 60.0-69.9, adult Status: Chronic Assessment and Plan: Healthy lifestyle modifications encouraged, however, it sounds as though weight loss has not been achieved despite these attempts. We discussed about discussing with PCP about alternatives, however, it sounds as though insurance is limiting alternative measures Encouraged healthy lifestyle modifications F/u with pcp (4) Essential (primary) hypertension: Code(s): I10 - Essential (primary) hypertension Status: Acute Assessment and Plan: BP 150s sys most recently Home antihypertensives held for now while NPO; resume when appropriate PRN hydralazine ordered with parameters (5) Type 2 diabetes mellitus with hyperglycemia: Code(s): E11.65 - Type 2 diabetes mellitus with hyperglycemia Status: Acute Assessment and Plan: Patient BGL 100s this morning. Home insulin held while NPO Continue to hold insulin for now Accuchecks Q6hr, hypoglycemia protocol, correctional insulin, diabetic diet once off NPO diet (6) RIKI (obstructive sleep apnea): Code(s): G47.33 - Obstructive sleep apnea (adult) (pediatric) Status: Chronic Assessment and Plan: continue CPAP Subjective Date/time seen: 09/25/20 11:44 Interval history: Patient is a 50 year old obese male with a history of ileus/small-bowel obstructions, DMII, HTN and gastroparesis who is seen in follow up for SBO. Patient states he feels a better today. Pain has improved to 3/10 with pain meds, up 9/10 without meds. Nausea improved. Has had BMs. No other complaints other than feeling weak and has a headache occasionally. Denies f/c/s, dizziness, lightheadedness, cp/palpitations, sob/cough, dysuria, calf pain/swelling. Review of Systems Review of Systems: All systems reviewed & are unremarkable except as noted in HPI and below Exam Narrative: Exam Narrative: General: Patient resting supine in bed in no acute distress, wearing CPAP HEENT: Normocephalic, EOMI, oral mucosa moist. Cardiovascular: Rate and rhythm are regular. No notable murmur, rub, or gallop. Respiratory: Lungs clear to auscultation anterolateral lung viera. Diminished due to body habitus. Non-labored breathing. Abdomen: Soft, obese, mild diffuse abd tenderness, bowel sounds difficult to appreciate given body habitus Extremities: Peripheral pulses intact. No edema. NTTP b/l calves Neuro: No focal neurological deficits. Speech is clear. Objective Data Vital Signs Vital Signs: Last Vital Signs Temp 96.9 F L 09/25/20 06:00 Pulse 72 09/25/20 06:00 Resp 24 H 09/25/20 06:00 BP 152/62 H 09/25/20 07:24 Pulse Ox 96 09/25/20 06:00 Intake/Output
[2020-09-25 12:01] LABS: Glucose Point of Care 182 (65-105)
[2020-09-25] MEDS: hydrALAZINE HCL 20 MG/ML VIAL 10 MG IV PUSH (15:28)
[2020-09-25] MEDS: PHENOL/SOD PHENO SPRAY CHERRY (*BKC) 1 SPRAY MUCOUS MEM (15:28)
--- NOTE | 2020-09-25 15:37 | ECG_ITS ---
Measurements Intervals [place] Rate: 78 P: 62 MO: 170 QRS: 41 QRSD: 102 T: 31 QT: 382 QTc: 438 Interpretive Statements SINUS RHYTHM NONSPECIFIC T-WAVE ABNORMALITY- INFERIOR LEADS BASELINE ARTIFACT- I, II, AVR, AVL, AVF, V1-V6 BORDERLINE ECG Electronically Signed On 09-25-2020 16:50:03 TURNING MACHINE OPERATOR HELPER by Rom Bills D.O.
[2020-09-25 17:04] LABS: Glucose Point of Care 180 (65-105)
[2020-09-25 18:07] LABS: Troponin I < 0.012 ng/mL (0.000-0.034)
[2020-09-26] VITALS (7 sets, daily range): BP systolic 152–156; BP diastolic 65–86; PULSE 67–73; RESP 16–22; TEMP 36.2–36.6; O2SAT 98–100
[2020-09-26] MEDS: SODIUM CHLORIDE 0.9% IV 1,000 ML 125 ML IV CONT ×2 (02:41→20:47)
[2020-09-26 05:11] LABS: Glucose Point of Care 191 (65-105)
[2020-09-26] MEDS: PHENOL/SOD PHENO SPRAY CHERRY (*BKC) 1 SPRAY MUCOUS MEM (05:50)
[2020-09-26 06:07] LABS: Glucose Point of Care 187 (65-105)
--- NOTE | 2020-09-26 06:30 | PM.PNGS ---
Progress Note: A&P Assessment and Plan (1) Small bowel obstruction: Code(s): K56.609 - Unspecified intestinal obstruction, unspecified as to partial versus complete obstruction Status: Acute Assessment and Plan: Hopefully has resolved. Abdomen soft and nontender. Active bowel sounds present. No further abdominal pain at all. Will get Gastrografin upper GI small-bowel series today. If goes through without difficulty will DC NG and start liquids. (2) Morbid obesity with BMI of 60.0-69.9, adult: Code(s): E66.01 - Morbid (severe) obesity due to excess calories; Z68.44 - Body mass index [BMI] 60.0-69.9, adult Status: Chronic (3) Chronic anticoagulation: Code(s): Z79.01 - retirement (current) use of anticoagulants Status: Chronic Assessment and Plan: Xarelto on hold (4) T2DM (type 2 diabetes mellitus): Code(s): E11.9 - Type 2 diabetes mellitus without complications Status: Chronic (5) Long-term insulin use: Code(s): Z79.4 - ferry terminal agent (current) use of insulin Status: Chronic Subjective Subjective Date/Time Seen: 09/26/20 06:30 Patient reports: feels better, pain is less (No longer having abdominal pain), bowel movement and afebrile Review of Systems Review of Systems: All systems reviewed & are unremarkable except as noted in HPI and below Constitutional: Constitutional: Denies chills, Denies fever(s) and Reports increased appetite Cardiovascular: Cardiovascular: Denies chest pain and Denies dyspnea Respiratory: Respiratory: Denies cough and Denies dyspnea Gastrointestinal: Gastrointestinal: Reports as per HPI, Denies abdominal pain, Denies diarrhea, Denies nausea and Denies vomiting Neurologic: Denies confusion and Denies headache(s) Exam Const: General: comfortable and no acute distress; No confusion Orientation/consciousness: patient oriented x3 and No confusion GI: Inspection: non-distended and obesity GI Palp: Yes Soft to palpation, No Tenderness to palpation present (GI), No Guarding due to palpation present (GI) and No Rebound tenderness present Auscultation: normal bowel sounds Neuro: General: patient oriented x3, no focal motor deficits and No confusion Psych: Affect: normal affect Insight: Good insight present (Psych) Judgement: Good judgement present (Psych) Objective Data Vital Signs Vital Signs: Vital Signs - 24 hr 09/25/20 07:24 09/25/20 13:35 09/25/20 14:00 Temperature 36.9 C Pulse Rate 90 72 Respiratory Rate 18 Blood Pressure 152/62 H 156/69 H 172/65 H Pulse Oximetry 97 09/25/20 16:30 09/25/20 17:29 09/25/20 18:21 Temperature Pulse Rate 76 Respiratory Rate 16 Blood Pressure 202/99 H 178/72 H 164/61 H Pulse Oximetry 99 09/25/20 20:00 09/25/20 20:17 09/26/20 00:00 Temperature 35.9 C L Pulse Rate 73 72 68 Respiratory Rate 22 H Blood Pressure 140/65 Pulse Oximetry 98 09/26/20 04:00 09/26/20 05:42 Temperature 36.4 C L Pulse Rate 67 73 Respiratory Rate 22 H Blood Pressure 152/86 H Pulse Oximetry 100 Intake/Output Intake/Output: Intake & Output 09/23/20 09/24/20 09/25/20 09/26/20 23:59 23:59 23:59 23:59 Intake Total 2240 3000 1200 Output Total 1975 851 Balance 265 3000 349 Meds/Results Medications: Active Medications Generic Name Dose Route Start Last Admin Trade Name Freq PRN Reason Stop Dose Admin Dextrose 12.5 gm 09/24/20 07:48 Dextrose 50% 25 Gm/50 Ml Syringe IV PUSH PRN PRN Hypoglycemia Protocol Enoxaparin Sodium 40 mg 09/24/20 21:00 09/25/20 20:26 Enoxaparin 40 Mg/0.4 Ml Syringe SUB-Q 40 mg Q12HR MILKA Administration Famotidine 20 mg 09/24/20 09:00 09/25/20 20:40 Famotidine 20 Mg/2 Ml Vial IV PUSH 20 mg Q12HR MILKA Administration Glucagon 1 mg 09/24/20 07:48 Glucagon For Inj 1 Mg Vial IM PRN PRN Hypoglycemia Protocol Glucose 15 gm 09/24/20 07:48 Glucose Oral Gel 15 Gm
[2020-09-26 06:58] LABS: Hematocrit 38.7 % (42.0-52.0); Hemoglobin 11.7 g/dL (14.0-18.0); Mean Corpuscular HGB Conc 30.2 g/dl (32-36); Mean Corpuscular Volume 79.5 fl (80-100); Mean Platelet Volume 10.1 fl (7.4-10.4); Platelet Count Result 285 k/mm3 (150-375); Red Blood Count 4.87 M/mm3 (4.6-6.20); Red Cell Distribution Width 15.5 % (11.5-14.5)
[2020-09-26 07:08] LABS: Anion Gap 7 mmol/L (8-16); Blood Urea Nitrogen 7 mg/dL (9-20); Calcium 8.2 mg/dL (8.4-10.2); Carbon Dioxide 26 mmol/L (22-30); Chloride 103 mmol/L (98-107); Estimated CRCL calculation 240 ml/min; Estimated Glomerular Filt Rate > 60; Glucose 195 mg/dL (75-110); Magnesium 1.8 mg/dL (1.6-2.3); Potassium 3.6 mmol/L (3.4-5.0); Sodium 136 mmol/L (137-145)
--- NOTE | 2020-09-26 07:53 | PC.NURSE ---
Patient down to radiology at 0755.
--- NOTE | 2020-09-26 10:37 | PC.NURSE ---
Patient returned from radiology at 1025.
[2020-09-26] MEDS: INSULIN ASPART (*BKC) 100 UNITS/ML SUB-Q ×2 (11:23→13:49)
[2020-09-26] MEDS: ENOXAPARIN 40 MG/0.4 ML SYRINGE SUB-Q ×2 (11:26→20:21)
[2020-09-26 11:39] LABS: Glucose Point of Care 209 (65-105)
--- NOTE | 2020-09-26 11:58 | PM.IMPN ---
Progress Note: A&P Assessment and Plan (1) Acute generalized abdominal pain: Code(s): R10.84 - Generalized abdominal pain Status: Acute Assessment and Plan: Likely secondary to SBO vs ileus given abdominal imaging. Pain improved. NG tube removed today. Dr. 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 No evidence of bleeding Hold a/c while NPO, resume when appropriate. Will do Lovenox 40 mg BID for VTE ppx for now Monitor for s/sx of bleeding (3) Morbid obesity with BMI of 60.0-69.9, adult: Code(s): E66.01 - Morbid (severe) obesity due to excess calories; Z68.44 - Body mass index [BMI] 60.0-69.9, adult Status: Chronic Assessment and Plan: Healthy lifestyle modifications encouraged, however, it sounds as though weight loss has not been achieved despite these attempts. We discussed about discussing with PCP about alternatives, however, it sounds as though insurance is limiting alternative measures Encouraged healthy lifestyle modifications F/u with pcp (4) Essential (primary) hypertension: Code(s): I10 - Essential (primary) hypertension Status: Acute Assessment and Plan: BP 150s sys most recently Will resume home antihypertensives today. PRN hydralazine ordered with parameters (5) Type 2 diabetes mellitus with hyperglycemia: Code(s): E11.65 - Type 2 diabetes mellitus with hyperglycemia Status: Acute Assessment and Plan: Patient BGL 100-200s this morning. Home insulin held while NPO Will resume home long acting insulin at lowered dose Accuchecks achs, hypoglycemia protocol, correctional insulin, diabetic diet once off NPO diet (6) RIKI (obstructive sleep apnea): Code(s): G47.33 - Obstructive sleep apnea (adult) (pediatric) Status: Chronic Assessment and Plan: continue CPAP Subjective Date/time seen: 09/26/20 11:58 Interval history: Patient is a 50 year old obese male with a history of ileus/small-bowel obstructions, DMII, HTN and gastroparesis who is seen in follow up for SBO. Patient states he feels a better again today. No pain today; n/v improved. Still having BMs with his imaging studies. NG tube being pulled by nursing today. Yesterday he had chest pain in the afternoon which has resolved once hydralazine was given; no CP since then. No other complaints. Denies f/c/s, dizziness, lightheadedness, cp/palpitations, sob/cough, dysuria, calf pain/swelling. Review of Systems Review of Systems: All systems reviewed & are unremarkable except as noted in HPI and below Exam Narrative: Exam Narrative: General: Patient sitting upright on side of bed at time of visit. Nursing in room removing NG tube HEENT: Normocephalic, EOMI, oral mucosa moist. Cardiovascular: Rate and rhythm are regular. No notable murmur, rub, or gallop. Respiratory: Lungs clear to auscultation anterolateral lung viera. Diminished due to body habitus. Non-labored breathing. Abdomen: Soft, obese, mild diffuse abd tenderness, bowel sounds present, but difficult to appreciate given body habitus Extremities: Peripheral pulses intact. No edema. NTTP b/l calves Neuro: No focal neurological deficits. Speech is clear. Objective Data Vital Signs Vital Signs: Last Vital Signs Temp 97.5 F L 09/26/20 05:42 Pulse 73 09/26/20 05:42 Resp 22 H 09/26/20 05:42 BP 1
[2020-09-26 13:33] LABS: Glucose Point of Care 201 (65-105)
[2020-09-26] MEDS: KCL 20 MEQ/SW 100 ML 100 ML 50 MEQ IVPB (13:49)
[2020-09-26] MEDS: GABAPENTIN 300 MG CAPSULE PO ×2 (13:49→18:42)
[2020-09-26] MEDS: FAMOTIDINE 20 MG/2 ML VIAL IV PUSH ×2 (13:52→20:21)
[2020-09-26] MEDS: INSULIN GLARGINE (*BKC) 100 UNITS/ML 30 UNITS SUB-Q (18:42)
[2020-09-26] MEDS: amLODIPine BESYLATE 5 MG TABLET PO (20:20)
[2020-09-26] MEDS: hydroCHLOROthiazide 12.5 MG CAPSULE PO (20:21)
[2020-09-26] MEDS: IRBESARTAN 150 MG TABLET PO (20:21)
[2020-09-26] MEDS: NEBIVOLOL HCL 5 MG TABLET 10 MG PO (20:21)
[2020-09-26 22:40] LABS: Glucose Point of Care 237 (65-105)
[2020-09-27 05:06] LABS: Glucose Point of Care 198 (65-105)
[2020-09-27] MEDS: hydrALAZINE HCL 20 MG/ML VIAL 10 MG IV PUSH (05:33)
[2020-09-27] MEDS: SODIUM CHLORIDE 0.9% IV 1,000 ML 125 ML IV CONT (05:35)
[2020-09-27 05:45] VITALS: BP 179/85; PULSE 58; RESP 20; TEMP 36.5; O2SAT 99
[2020-09-27] MEDS: ACETAMINOPHEN 325 MG TABLET 650 MG PO (06:05)
[2020-09-27 06:38] VITALS: BP 171/65
[2020-09-27 07:20] LABS: Hematocrit 38.8 % (42.0-52.0); Hemoglobin 12.1 g/dL (14.0-18.0); Mean Corpuscular HGB Conc 31.2 g/dl (32-36); Platelet Count Result 292 k/mm3 (150-375); Red Blood Count 5.04 M/mm3 (4.6-6.20); Red Cell Distribution Width 15.2 % (11.5-14.5); White Blood Count 5.6 K/mm3 (4.5-10.0)
[2020-09-27 07:45] LABS: Anion Gap 7 mmol/L (8-16); Blood Urea Nitrogen 5 mg/dL (9-20); Calcium 8.9 mg/dL (8.4-10.2); Carbon Dioxide 26 mmol/L (22-30); Chloride 102 mmol/L (98-107); Estimated CRCL calculation 208 ml/min; Estimated Glomerular Filt Rate > 60; Glucose 206 mg/dL (75-110); Magnesium 1.9 mg/dL (1.6-2.3); Potassium 3.6 mmol/L (3.4-5.0); Sodium 135 mmol/L (137-145)
[2020-09-27 08:00] VITALS: PULSE 58; RESP 20; O2SAT 99
[2020-09-27 08:33] LABS: Glucose Point of Care 221 (65-105)
[2020-09-27] MEDS: INSULIN ASPART (*BKC) 100 UNITS/ML SUB-Q ×2 (08:41→13:09)
[2020-09-27] MEDS: GABAPENTIN 300 MG CAPSULE PO ×2 (08:44→13:10)
[2020-09-27] MEDS: ENOXAPARIN 40 MG/0.4 ML SYRINGE SUB-Q (08:44)
[2020-09-27] MEDS: FAMOTIDINE 20 MG/2 ML VIAL IV PUSH (08:44)
[2020-09-27] MEDS: INSULIN GLARGINE (*BKC) 100 UNITS/ML 30 UNITS SUB-Q (08:44)
--- NOTE | 2020-09-27 09:20 | PM.IMPN ---
Progress Note: A&P Assessment and Plan (1) Acute generalized abdominal pain: Code(s): R10.84 - Generalized abdominal pain Status: Acute Assessment and Plan: Likely secondary to SBO vs ileus given abdominal imaging. Pain improved. NG tube removed 09/26. Tolerating diet thus far. Having BMs. Dr. George following; appreciate recommendations. 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 No evidence of bleeding Hold a/c for now, resume when appropriate, likely after discharge. Will continue Lovenox 40 mg BID for VTE ppx for now Monitor for s/sx of bleeding (3) Morbid obesity with BMI of 60.0-69.9, adult: Code(s): E66.01 - Morbid (severe) obesity due to excess calories; Z68.44 - Body mass index [BMI] 60.0-69.9, adult Status: Chronic Assessment and Plan: Healthy lifestyle modifications encouraged, however, it sounds as though weight loss has not been achieved despite these attempts. We discussed about discussing with PCP about alternatives, however, it sounds as though insurance is limiting alternative measures Encouraged healthy lifestyle modifications F/u with pcp (4) Essential (primary) hypertension: Code(s): I10 - Essential (primary) hypertension Status: Acute Assessment and Plan: BP 170s sys most recently Will continue home antihypertensives today. PRN hydralazine ordered with parameters (5) Type 2 diabetes mellitus with hyperglycemia: Code(s): E11.65 - Type 2 diabetes mellitus with hyperglycemia Status: Acute Assessment and Plan: Patient BGL 100-200s this morning. Home insulin held while NPO Will continue home long acting insulin at lowered dose. Damon resume home insulin regimen after discharge Accuchecks achs, hypoglycemia protocol, correctional insulin, diabetic diet once off NPO diet (6) RIKI (obstructive sleep apnea): Code(s): G47.33 - Obstructive sleep apnea (adult) (pediatric) Status: Chronic Assessment and Plan: continue CPAP Subjective Date/time seen: 09/27/20 09:20 Interval history: Patient is a 50 year old obese male with a history of ileus/small-bowel obstructions, DMII, HTN and gastroparesis who is seen in follow up for SBO. Patient states he feels a better again today. No pain today; n/v resolved. Having BMs. Tolerating diet thus far. No other complaints. Denies f/c/s, dizziness, lightheadedness, cp/palpitations, sob/cough, dysuria, calf pain/swelling. Review of Systems Review of Systems: All systems reviewed & are unremarkable except as noted in HPI and below Exam Narrative: Exam Narrative: General: Patient sitting upright on side of bed at time of visit, eating breakfast without difficulty HEENT: Normocephalic, EOMI, oral mucosa moist. Cardiovascular: Rate and rhythm are regular. No notable murmur, rub, or gallop. Respiratory: Lungs clear to auscultation anterolateral lung viera. Diminished due to body habitus. Non-labored breathing. Abdomen: Soft, obese, mild diffuse abd tenderness, bowel sounds present, but difficult to appreciate given body habitus Extremities: Peripheral pulses intact. No edema. NTTP b/l calves Neuro: No focal neurological deficits. Speech is clear. Objective Data Vital Signs Vital Signs: Last Vital Signs Temp 97.7 F 09/27/20 05:45 Pulse 58 L 09/27/20 05:45
--- NOTE | 2020-09-27 10:01 | PM.DS ---
DS: Admitting Diagnosis Admitting Diagnosis Admitting Diagnosis: SBO, abdominal pain DS: Discharge Diagnosis Discharge Diagnosis (1) Acute generalized abdominal pain: Code(s): R10.84 - Generalized abdominal pain Status: Acute Assessment and Plan: Likely secondary to SBO vs ileus given abdominal imaging. Pain improved. NG tube removed 09/26. Tolerating diet thus far. Having BMs. Dr. George following; appreciate recommendations. Imaging today unremarkable. discussed with chip José for discharge from General Surgery standpoint Diabetic Diet per General Surgery rec d/c today back home (2) Chronic anticoagulation: Code(s): Z79.01 - [facility] (current) use of anticoagulants Status: Chronic Assessment and Plan: Patient has history of PE in 2018 and is on chronic a/c with Xarelto since then. No evidence of bleeding Held home a/c during stay, resume at discharge Lovenox 40 mg BID for VTE ppx during stay (3) Morbid obesity with BMI of 60.0-69.9, adult: Code(s): E66.01 - Morbid (severe) obesity due to excess calories; Z68.44 - Body mass index [BMI] 60.0-69.9, adult Status: Chronic Assessment and Plan: Healthy lifestyle modifications encouraged, however, it sounds as though weight loss has not been achieved despite these attempts. We discussed about discussing with PCP about alternatives, however, it sounds as though insurance is limiting alternative measures Encouraged healthy lifestyle modifications F/u with pcp Will have CC possibly provide more resources (4) Essential (primary) hypertension: Code(s): I10 - Essential (primary) hypertension Status: Acute Assessment and Plan: BP 170s sys most recently although just recently was placed back on home meds last night Will continue home antihypertensives PRN hydralazine ordered with parameters during stay (5) Type 2 diabetes mellitus with hyperglycemia: Code(s): E11.65 - Type 2 diabetes mellitus with hyperglycemia Status: Acute Assessment and Plan: Patient BGL 200s this morning. Home insulin held while NPO Will continue home long acting insulin at lowered dose. Likely resume home insulin regimen after discharge Accuchecks achs, hypoglycemia protocol, correctional insulin, diabetic diet once off NPO diet (6) RIKI (obstructive sleep apnea): Code(s): G47.33 - Obstructive sleep apnea (adult) (pediatric) Status: Chronic Assessment and Plan: continue CPAP DS: Summary Hospital Course Reason for hospitalization: SBO, abdominal pain Hospital Course: Date of arrival: 09/24/20 Date of discharge: 09/27/20 From H&P 09/24/20 Jerome Olson is a 50 year old obese male with a history of ileus/small-bowel obstructions, DMII, HTN and gastroparesis who presented to the ED on 09/23 from home with complaints abdominal pain. Patient states pain started on Friday 09/21 and started centrally in his abdomen and described it as a cramping pain. As the days progressed, this pain slowly intensified, with him having associated bouts of non-bloody diarrhea and dry heaves. He states he began to eat less and less and try to drink as much water as possible given his diarrhea. On Monday, 09/23, at roughly 2:00 am he had his last BM and since then he reports not having BMs nor passing any gas and having more dry heaves. His pain intensified throughout the day to a point were his pain was 10/10, prompting him to present to the ED for evaluation. He states the pain is similar to bowel obstructions in the past. He notes he has had these bowel obstructions at least 3 times a year, but has become less frequent, noting symptoms arising only once a year now. He notes that his pain is better
--- NOTE | 2020-09-27 10:27 | PM.PNGS ---
Progress Note: A&P Assessment and Plan (1) Small bowel obstruction: Code(s): K56.609 - Unspecified intestinal obstruction, unspecified as to partial versus complete obstruction Status: Resolved Assessment and Plan: okay to discharge from surgical standpoint. I discussed this with Max monroe.a. C. Can go home on diabetic diet. No need to follow up with me. (2) Morbid obesity with BMI of 60.0-69.9, adult: Code(s): E66.01 - Morbid (severe) obesity due to excess calories; Z68.44 - Body mass index [BMI] 60.0-69.9, adult Status: Chronic Assessment and Plan: This needs to be the primary focus of the patient's further care. He seems to be under the impression that his insurance will cover a weight reduction program that can include gastric reduction surgery. Care coordination to see and refer this to his primary care physician. This would be a very unusual circumstance and not 1 that I have ever seen hold true that he cannot be covered for gastric reduction surgery. Discussed this with Max Brody Pac as well as the patient. (3) Chronic anticoagulation: Code(s): Z79.01 - [facility] (current) use of anticoagulants Status: Chronic Assessment and Plan: Okay to resume anticoagulation as per home doses. 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 Status: Chronic Subjective Subjective Date/Time Seen: 09/27/20 10:27 Patient reports: no new complaints, feels better, pain is less (No abdominal pain again today), tolerating liquids well, bowel movement and afebrile Review of Systems Review of Systems: All systems reviewed & are unremarkable except as noted in HPI and below Constitutional: Constitutional: Denies chills, Denies fever(s), Denies headache(s) and Denies night sweats Cardiovascular: Cardiovascular: Denies chest pain and Denies dyspnea Respiratory: Respiratory: Denies cough and Denies dyspnea Gastrointestinal: Gastrointestinal: Reports as per HPI, Denies abdominal pain, Denies constipation, Denies early satiety, Denies heartburn, Denies nausea and Denies vomiting Neurologic: Denies confusion and Denies headache(s) Exam Const: General: comfortable and no acute distress; No confusion Orientation/consciousness: patient oriented x3 and No confusion GI: Inspection: obesity GI Palp: Yes Soft to palpation, No Tenderness to palpation present (GI), No Guarding due to palpation present (GI) and No Rebound tenderness present Auscultation: normal bowel sounds Neuro: General: patient oriented x3, no focal motor deficits and No confusion Psych: Affect: normal affect Insight: Good insight present (Psych) Judgement: Good judgement present (Psych) Objective Data Vital Signs Vital Signs: Vital Signs - 24 hr 09/26/20 14:00 09/26/20 20:21 09/26/20 22:00 Temperature 36.6 C 36.2 C L Pulse Rate 69 68 68 Respiratory Rate 16 20 Blood Pressure 156/65 H 154/70 H Pulse Oximetry 98 99 09/27/20 05:45 09/27/20 06:38 Temperature 36.5 C Pulse Rate 58 L Respiratory Rate 20 Blood Pressure 179/85 H 171/65 H Pulse Oximetry 99 Intake/Output Intake/Output: Intake & Output 09/24/20 09/25/20 09/26/20 09/27/20 23:59 23:59 23:59 23:59 Intake Total 2240 3000 3070 1840 Output Total 1975 851 Balance 265 3000 2219 1840 Meds/Results Medications: Active Medications Generic Name Dose Route Start Last Admin Trade Name Freq PRN Reason Stop Dose Admin Acetaminophen 650 mg 09/27/20 05:40 09/27/20 06:05 Acetaminophen 325 Mg Tablet PO 650 mg Q4H PRN Administration Mild Pain (1-3) or Fever Amlodipine Besylate 5 mg 09/26/20 21:00 09/26/20 20:20 Am
[2020-09-27 13:06] LABS: Glucose Point of Care 245 (65-105)
== END 2020-09-27 14:25 | disposition home or self-care (01) | DRG 389 ==
LOC: ANHED 02:18 → ANH3MEDSUR 04:27
PROVIDERS: Emergency Medicine Emergency Medical Services; Surgery; Admitting Provider Student in an Organized Health Care Education/Training Program; Emergency Provider Emergency Medicine; PCP Family Medicine; Visit Provider Physician Assistant
DX: K56.609 Unspecified intestinal obstruction, unspecified as to partial versus complete obstruction (principal); Z68.44 Body mass index [BMI] 60.0-69.9, adult; K56.0 Paralytic ileus; E66.01 Morbid (severe) obesity due to excess calories; E11.65 Type 2 diabetes mellitus with hyperglycemia; I10 Essential (primary) hypertension; E11.42 Type 2 diabetes mellitus with diabetic polyneuropathy; G47.33 Obstructive sleep apnea (adult) (pediatric); R07.89 Other chest pain; Z86.711 Personal history of pulmonary embolism; Z90.49 Acquired absence of other specified parts of digestive tract; Z91.19 Patient's noncompliance with other medical treatment and regimen; Z79.01 Long term (current) use of anticoagulants
CPT/HCPCS: 36415; 71045; 74018; 74176; 74240; 74248; 74250; 80048; 80053; 81001; 83036; 83605; 83690; 83735; 84484; 85025; 85027; 87086; 87088; 93005; 96361; 96374; 96375; 99285; A9270; J0360; J1170; J1650; J1815; J2405; J3480; J7030

== ENCOUNTER 2020-10-24 11:15 | Emergency (ER) | payer OTHER, SELFPAY ==
--- NOTE | 2020-10-24 11:27 | ED.EAR ---
HPI - Ear Problem General Chief complaint: Ear Stated complaint: Ear pain Source: patient and RN notes reviewed Mode of arrival: ambulatory Limitations: no limitations History of Present Illness HPI Narrative: 50 yo male presents to the [facility] with C/O right ear pain with swelling for 2 days. Pain into the jaw and around the lower ear. Has taken tylenol with no relief. Denies fevers, ear drainage, no abdominal pain or chest pain. Patient has a HX of DM, HTN, SBO, morbid obesity and noncompliance of medication. States that he did not check his Blood sugar or use Insulin this am. Location: right ear Related Data Home Medications Medication Instructions Recorded Confirmed Basaglar KwikPen U-100 Insulin 65 unit SUBCUT BID 09/24/20 10/24/20 amlodipine 5 mg PO HS 09/24/20 10/24/20 gabapentin 300 mg PO TID 09/24/20 10/24/20 irbesartan-hydrochlorothiazide 1 tablet PO HS 09/24/20 10/24/20 Allergies Allergy/AdvReac Type Severity Reaction Status Date / Time gadobenic acid Allergy Severe Anaphylaxis Verified 10/24/20 12:24 [From CONTRAST-MRI] Iodinated Contrast Media Allergy Severe Anaphylaxis Verified 10/24/20 12:24 iohexol Allergy Severe Anaphylaxis Verified 10/24/20 12:24 [From CONTRAST - CT, XRAY] prochlorperazine AdvReac Severe Agitated Verified 10/24/20 12:24 Review of Systems Review of Systems: Narrative: CONSTITUTIONAL: Denies fever, chills, or sweats. EYES: Denies visual changes, redness, or discharge. ENT: Denies rhinorrhea, congestion, sore throat. +right ear pain with swelling. CARDIOVASCULAR: Denies chest pain, palpitations, or edema. RESPIRATORY: Denies cough or dyspnea. GASTROINTESTINAL: Denies abdominal pain, nausea, vomiting, or diarrhea. NEUROLOGIC: Denies headache, numbness, or weakness. PSYCHIATRIC: Denies anxiety or depression. All other systems reviewed are negative, except as documented in HPI. [facility] Past Medical History Medical History Acute low back pain Bowel obstruction Concussion CPAP (continuous positive airway pressure) dependence Diverticulitis Erectile dysfunction HTN (hypertension) Kidney stone Migraines RIKI (obstructive sleep apnea) Peripheral neuropathy Primary insomnia Pulmonary embolism left lung following lap jae in July 2018, on Xarelto Sleep apnea T2DM (type 2 diabetes mellitus) Surgical History Surgical History Hx of cholecystectomy laparoscopic cholecystectomy on July of 2018 Family History Family History Mother Congestive heart failure Diabetes mellitus Social History Social History Social History: Pt designates his Eula as his surrogate decision maker. Full code status. His PCP is Dr. Forde. He lives at home with his and daughter. Smoking status: Never smoker Alcohol intake: never Substance use: never Substance use type: does not use Gender identity (if verbalized by the patient): Male Spiritual care concerns: No Agree to blood products: Yes Comments At the time of my signature, I reviewed and agree with the nursing past medical, surgical, social, and family history. There is no relevant family history pertinent to the patient complaint. Reviewed previous 2 years charts, admissions Exam Narrative: Exam Narrative: GENERAL: This is a well-nourished, well-developed patient. Obese and appears painful. HEAD: normocephalic, atraumatic. EYES: PERRL. Sclera clear/white. Vision is grossly intact. EARS: Left external ears normal, auditory canals clear and without drainage, TMs normal without perforation. Hearing grossly intact left ear. muffled in the right NOSE: External nose normal with no obvious nasal discharge, nares without redness, no rhinorrhea. THROAT: Mucous membranes moist, posterior pharynx mariely
[2020-10-24 11:39] VITALS: BP 159/78; PULSE 75; RESP 16; TEMP 36.1; O2SAT 98
[2020-10-24 11:40] LABS: Glucose Point of Care 308 (65-105)
== END 2020-10-24 11:53 | disposition short-term general hospital (02) ==
PROVIDERS: Emergency Provider Nurse Practitioner; PCP Family Medicine
DX: H92.01 Otalgia, right ear (principal); I10 Essential (primary) hypertension; G47.33 Obstructive sleep apnea (adult) (pediatric); Z86.711 Personal history of pulmonary embolism; Z79.01 Long term (current) use of anticoagulants; E11.42 Type 2 diabetes mellitus with diabetic polyneuropathy
CPT/HCPCS: 82948; 99212; G0463

== ENCOUNTER 2020-10-24 12:09 | Emergency (ER) | payer OTHER, SELFPAY ==
--- NOTE | ~2020-10-24 | CT_ITS ---
EXAMINATION: CT IAC/mastoids BI wo con DATE: 10/24/2020 12:40 INDICATION: Right ear/jaw pain TECHNIQUE: Computed tomography (CT) of the internal auditory canals was performed without intravenous contrast. The dose-length product was 678.01 mGy-cm. Automated exposure control and iterative recons truction technique were employed. COMPARISON: CT dated 07/10/2018 FINDINGS: There is fluid soft tissue in the right middle ear may suggest otitis media. No erosive mich nges. Minimal right mastoid effusion. There are small periauricular lymph nodes in the soft tissues, likely reactive. IMPRESSION: 1. Fluid/soft tissue in the right middle ear, suspicious for otitis media. 2: Small right mastoid effusion. 3: Small bilateral periauricular lymph nodes, likely reactive. Reviewed, dictated and finalized at location A. NG TEACHER
[2020-10-24 12:20] VITALS: BP 201/91; PULSE 78; RESP 20; TEMP 36.8; O2SAT 96
--- NOTE | 2020-10-24 12:30 | ED.EAR ---
HPI - Ear Problem General Chief complaint: Ear Stated complaint: sent from PMD right side mastoiditis. Time Seen by Provider: 10/24/20 12:15 Source: patient Mode of arrival: ambulatory Limitations: no limitations History of Present Illness HPI Narrative: A 50-year-old man comes into the emergency department after visiting an outside urgent care because of right ear pain. Patient was sent in here to have mastoiditis ruled out. Patient notes that over the last 2 to 3 days his right ear pain has markedly increased. He denies hearing any ringing in the ears but does note an increased sense of muffled sounds from this ear. Patient states that he has had some wet drainage coming from this ear. He denies any straight pus or blood coming from the ear. Related Data Home Medications Medication Instructions Recorded Confirmed Basaglar KwikPen U-100 Insulin 65 unit SUBCUT BID 09/24/20 10/24/20 amlodipine 5 mg PO HS 09/24/20 10/24/20 gabapentin 300 mg PO TID 09/24/20 10/24/20 irbesartan-hydrochlorothiazide 1 tablet PO HS 09/24/20 10/24/20 Allergies Allergy/AdvReac Type Severity Reaction Status Date / Time gadobenic acid Allergy Severe Anaphylaxis Verified 10/24/20 12:24 [From CONTRAST-MRI] Iodinated Contrast Media Allergy Severe Anaphylaxis Verified 10/24/20 12:24 iohexol Allergy Severe Anaphylaxis Verified 10/24/20 12:24 [From CONTRAST - CT, XRAY] prochlorperazine AdvReac Severe Agitated Verified 10/24/20 12:24 Review of Systems Review of Systems: Narrative: CONSTITUTIONAL: Denies fever, chills, or sweats. EYES: Denies visual changes, redness, or discharge. ENT: Denies rhinorrhea, congestion, sore throat, or otalgia. Endorses right ear pain. CARDIOVASCULAR: Denies chest pain, palpitations, or edema. RESPIRATORY: Denies cough or dyspnea. GASTROINTESTINAL: Denies abdominal pain, nausea, vomiting, or diarrhea. GENITOURINARY: Denies dysuria or hematuria. SKIN: Denies rash or itching. MUSCULOSKELETAL: Denies back pain, joint pain, or myalgia. NEUROLOGIC: Denies headache, numbness, dizziness, or weakness. PSYCHIATRIC: Denies anxiety or depression. [facility] Past Medical History Medical History Acute low back pain Bowel obstruction Concussion CPAP (continuous positive airway pressure) dependence Diverticulitis Erectile dysfunction HTN (hypertension) Kidney stone Migraines RIKI (obstructive sleep apnea) Peripheral neuropathy Primary insomnia Pulmonary embolism left lung following lap jae in July 2018, on Xarelto Sleep apnea T2DM (type 2 diabetes mellitus) Surgical History Surgical History Hx of cholecystectomy laparoscopic cholecystectomy on July of 2018 Family History Family History Mother Congestive heart failure Diabetes mellitus Social History Social History Social History: Pt designates his Eula as his surrogate decision maker. Full code status. His PCP is Dr. Forde. He lives at home with his and daughter. Smoking status: Never smoker Alcohol intake: never Substance use: never Substance use type: does not use Gender identity (if verbalized by the patient): Male Spiritual care concerns: No Agree to blood products: Yes Exam Narrative: Exam Narrative: GENERAL: Well-appearing, well-nourished, and in no acute distress. HEAD: Normocephalic, atraumatic. EYES: PERRLA and EOMI. ENT: Nares clear, no rhinorrhea or epistaxis. Mucous membranes moist. Oropharynx without tonsillar hypertrophy exudate or other lesions. Right EAC is markedly edematous and tender, significantly limits exam. Normal left EAC and TM NECK: Supple. No adenopathy or masses. No carotid bruits or JVD CHEST: Clear to auscultation. No respiratory distress. No wheezes rales or rhonchi HEART:
[2020-10-24 13:33] LABS: Basophils Percent Auto 0.5 % (0.2-1.2); Eosinophils Absolute Auto 0.2 K/mm3 (0-0.3); Eosinophils Percent Auto 3.5 % (0-4.4); Hematocrit 40.2 % (42.0-52.0); Hemoglobin 12.4 g/dL (14.0-18.0); Immature Granulocyte Absolute 0.04 K/mm3 (0.00-0.031); Immature Granulocyte Percent A 0.7 % (0-0.5); Lymphocytes Absolute Auto 2.04 K/mm3 (0.9-3.2); Mean Corpuscular HGB Conc 30.8 g/dl (32-36); Mean Corpuscular Hemoglobin 24.2 pg (26-34); Mean Corpuscular Volume 78.4 fl (80-100); Mean Platelet Volume 9.9 fl (7.4-10.4); Monocytes Absolute Auto 0.4 K/mm3 (0.1-0.6); Monocytes Percent Auto 7.1 % (2.6-8.5); Neutrophils Percent Auto 52.2 % (45.5-73.1); Platelet Count Result 284 k/mm3 (150-375); Red Blood Count 5.13 M/mm3 (4.6-6.20); Red Cell Distribution Width 15.5 % (11.5-14.5); White Blood Count 5.7 K/mm3 (4.5-10.0)
[2020-10-24] MEDS: HYDROcodone/acetaminophen (*CRX) 5-325 MG TABLET 1 TAB PO (13:34)
[2020-10-24] MEDS: KETOROLAC (*BKC) 60 MG/2 ML VIAL IM (13:34)
[2020-10-24 13:45] LABS: Alanine Aminotransferase 20 U/L (4-50); Albumin Level 3.9 g/dL (3.5-5.1); Alkaline Phosphatase 80 U/L (38-126); Anion Gap 5 mmol/L (8-16); Aspartate Amino Transferase 18 U/L (17-59); Bilirubin,Total 0.3 mg/dL (0.2-1.3); Blood Urea Nitrogen 10 mg/dL (9-20); CRP 3.1 mg/dL (<1.0); Calcium 8.8 mg/dL (8.4-10.2); Carbon Dioxide 30 mmol/L (22-30); Chloride 101 mmol/L (98-107); Estimated CRCL calculation 213 ml/min; Estimated Glomerular Filt Rate > 60; Glucose 307 mg/dL (75-110); Sodium 136 mmol/L (137-145)
[2020-10-24] MEDS: AMOXICILLIN/CLAVULANATE K 875-125 MG TAB 1 TABLET PO (13:50)
[2020-10-24 14:27] LABS: Erythrocyte Sedimentation Rate 23 mm/hr (0-20)
[2020-10-24] MEDS: CIPROFLOXACIN HC OTIC 10 ML 3 DROP RIGHT EAR (14:53)
[2020-10-24] MEDS: CIPROFLOXACIN 500 MG TAB PO (14:53)
[2020-10-24 15:07] VITALS: BP 190/90; PULSE 80; RESP 20; O2SAT 99
== END 2020-10-24 15:09 | disposition home or self-care (01) ==
PROVIDERS: Emergency Provider Emergency Medicine; PCP Family Medicine
DX: H66.91 Otitis media, unspecified, right ear (principal); E11.65 Type 2 diabetes mellitus with hyperglycemia; E66.01 Morbid (severe) obesity due to excess calories; Z68.44 Body mass index [BMI] 60.0-69.9, adult; I10 Essential (primary) hypertension; G47.33 Obstructive sleep apnea (adult) (pediatric); E11.42 Type 2 diabetes mellitus with diabetic polyneuropathy; Z87.442 Personal history of urinary calculi; Z86.711 Personal history of pulmonary embolism; Z79.4 Long term (current) use of insulin
CPT/HCPCS: 36415; 70480; 80053; 85025; 85652; 86140; 96372; 99284; A9270; J1885

== ENCOUNTER 2020-12-18 08:55 | Outpatient (CLI) | payer OTHER, SELFPAY | END 2020-12-18 08:56 | disposition home or self-care (01) | PROVIDERS: PCP Family Medicine | DX: Z23 Encounter for immunization (principal) | CPT/HCPCS: 0001A; 91300 ==

== ENCOUNTER 2020-12-31 15:17 | Observation (INO) | payer OTHER, SELFPAY ==
[2020-12-31] VITALS (17 sets, daily range): BP systolic 143–195; BP diastolic 79–117; PULSE 67–81; RESP 12–24; TEMP 36.1–37.2; O2SAT 95–100; BMI 65.7
--- NOTE | ~2020-12-31 | CT_ITS ---
EXAMINATION: CT brain wo con EXAM DATE: 01/01/2021 22:47 INDICATION: Severe headaches . TECHNIQUE: Spiral CT of the head was performed without contrast. Axial, coronal and sagittal images were reviewed. The dose-length product (DLP) for this examination was 681.00 mGy-cm. The exposure w as tailored according to patient size, and iterative reconstruction (ASIR) was used as additional dos e reduction technique. Comparison is made to prior examination from 07/10/2018. FINDINGS: There is no acute intraparenchymal hemorrhage. No evidence of intraparenchymal brain mass lesion. No evidence of acute infarction. There is no mass effect or midline shift. The ventricles are normal in size. There are no extra-axial collections. There are no acute calvarial fractures. T he orbits are unremarkable. Small amount of right posterior scalp swelling. The visualized sinuses a nd mastoid air cells are well aerated. There is no interval change. IMPRESSION: 1. No acute intracranial findings. 2. Small amount right posterior scalp swelling. Reviewed, dictated and finalized at location G.
--- NOTE | ~2020-12-31 | CT_ITS ---
EXAMINATION: CTA chest PE protocol EXAM DATE: 01/01/2021 15:52 INDICATION: Right chest pain, hypoxia on exertion. Premedicated. History of pulmonary embolism TECHNIQUE: Spiral CTA of the chest (pulmonary arteries) was performed with 100 cc Omnipaque 350 intr avenous contrast injection. Images were acquired during the pulmonary arterial phase. Coronal maxi mum intensity projection 3D-reconstructions were created by the technologist on dedicated workstation . Axial, coronal and sagittal reformatted images were reviewed. The dose-length product (DLP) for t his examination was 1100.53 mGy-cm. The exposure was tailored according to patient size (auto mA ex posure control), and iterative reconstruction (ASIR) was used as additional dose reduction technique. Comparison is made to prior examination from 07/20/2018. FINDINGS: Limitations from patient's body habitus. There are no pulmonary emboli in the 1st through 3 rd order (central and interlobar) pulmonary arteries. Some loss of attenuation in the left basilar s egmental pulmonary from respiratory motion, these regions not confidently evaluated. No Intraluminal filling defects identified. No thoracic aortic dissection. The lungs are clear. There are no ple ural or pericardial effusions. Tracheobronchial tree is patent. There is no mediastinal, hilar or axillary lymphadenopathy. There is no pneumothorax. Heart normal in size. No evidence of coron aram arterial calcification. There are cholecystectomy clips. There is hepatic steatosis. Pancreatic tail appearance unchanged going back to 2007, less fatty infiltration then the other portions of the pancreas. There is mild thoracic spondylosis without osteoblastic or osteolytic lesions identified. IMPRESSION: Limited left basilar segmental evaluation, but no pulmonary emboli are suspected. Clear l ungs. Reviewed, dictated and finalized at location A. IMPRESSION: Limited left basilar segmental evaluation, but no pulmonary emboli are suspected. Clear lungs.
--- NOTE | ~2020-12-31 | XR_ITS ---
EXAMINATION: XR chest 1V portable EXAM DATE: 12/31/2020 15:59 INDICATION: Shortness of breath. Hypertension chest tightness. Right-sided facial pain. TECHNIQUE: Portable AP frontal chest x-rays obtained. Comparison is made to prior examination from FINDINGS: The lungs are clear. There are no pleural effusions. Cardiac silhouette is prominent but magnified on this AP technique. There is no pneumothorax suspected. The bones and soft tissues are unremarkable. IMPRESSION: No acute cardiopulmonary findings. Reviewed, dictated and finalized at location A.
--- NOTE | 2020-12-31 15:40 | ECG_ITS ---
Measurements Intervals [place] Rate: 77 P: 47 UT: 188 QRS: 27 QRSD: 94 T: 129 QT: 382 QTc: 435 Interpretive Statements SINUS RHYTHM BORDERLINE ST-T WAVE ABNORMALITY- INF/LAT LEADS BASELINE ARTIFACT- V3, V6 BORDERLINE ECG Electronically Signed On 12-31-2020 15:44:16 CDT by Rom Bills D.O.
--- NOTE | 2020-12-31 15:49 | PC.NURSE ---
Attempt at IV/blood draw unsuccessful x2 RN's. Vascular sports medicine physician not available.
--- NOTE | 2020-12-31 15:59 | ED.GENADULT ---
HPI - General Adult General Chief complaint: Shortness of Breath/Dyspnea Stated complaint: SOB Time Seen by Provider: 12/31/20 15:44 Source: patient, family and RN notes reviewed Limitations: no limitations History of Present Illness HPI narrative: Patient is 50 years old -[place] male presents with shortness of breath over the last 5 to 6 months on exertion, getting worse lately. 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 Currently patient on Xarelto for pulmonary embolism. Patient is telling me that he been taking Xarelto daily and he is very bahai about it. Today patient developed some pain at the right face right chest right upper back. Patient also is telling me that his weight is getting worse. Patient is unable to get out of bed and go to the bathroom without severe shortness of breath. Patient denies any fever, chills, nausea, vomiting, coughing. Patient had Covid vaccine 3 weeks ago. He denies exposure to anybody with known COVID-19 infection Related Data Home Medications Medication Instructions Recorded Confirmed Basaglar ChristopehikPen U-100 Insulin 65 unit SUBCUT BID 09/24/20 12/31/20 gabapentin 300 mg PO TID 09/24/20 12/31/20 Allergies Allergy/AdvReac Type Severity Reaction Status Date / Time gadobenic acid Allergy Severe Anaphylaxis Verified 12/31/20 16:16 [From CONTRAST-MRI] Iodinated Contrast Media Allergy Severe Anaphylaxis Verified 12/31/20 16:16 iohexol Allergy Severe Anaphylaxis Verified 12/31/20 16:16 [From CONTRAST - CT, XRAY] prochlorperazine AdvReac Severe Agitated Verified 12/31/20 16:16 Review of Systems Review of Systems: Narrative: CONSTITUTIONAL: Denies fever, chills, or sweats. EYES: Denies visual changes, redness, or discharge. ENT: Denies rhinorrhea, congestion, sore throat, or otalgia. CARDIOVASCULAR: Denies chest pain, palpitations, or edema. RESPIRATORY: Denies cough or dyspnea. GASTROINTESTINAL: Denies abdominal pain, nausea, vomiting, or diarrhea. GENITOURINARY: Denies dysuria or hematuria. SKIN: Denies rash or itching. MUSCULOSKELETAL: Denies back pain, joint pain, or myalgia. NEUROLOGIC: Denies headache, numbness, or weakness. PSYCHIATRIC: Denies anxiety or depression. [facility] Past Medical History Medical History Acute low back pain Bowel obstruction Concussion CPAP (continuous positive airway pressure) dependence Diverticulitis Erectile dysfunction HTN (hypertension) Kidney stone Migraines RIKI (obstructive sleep apnea) Peripheral neuropathy Primary insomnia Pulmonary embolism left lung following lap jae in July 2018, on Xarelto Sleep apnea T2DM (type 2 diabetes mellitus) Surgical History Surgical History Hx of cholecystectomy laparoscopic cholecystectomy on July of 2018 Family History Family History Mother Congestive heart failure Diabetes mellitus Social History Social History Social History: Pt designates his Eula as his surrogate decision maker. Full code status. His PCP is Dr. Forde. He lives at home with his and daughter. Smoking status: Never smoker Alcohol intake: never Substance use: never Substance use type: does not use Gender identity (if verbalized by the patient): Male Spiritual care concerns: No Agree to blood products: Yes Exam Narrative: Exam Narrative: General appearance: Well-developed, well-nourished, morbidly obese, at the bedside Skin: Normal color Head: Normocephalic, nontraumatic Eyes: Clear conjunctiva ENT: Oropharynx normal, ears normal, nose normal Neck: Supple, nontender Chest and respiratory: Airway patent, no respiratory distress, no accessory muscle use Heart: Regular rate/rhythm Abdomen: So
[2020-12-31 16:17] LABS: Alveolar/Arterial O2 Gradient 14.6 mmHg; Base Excess ABG 2.4 mEq/l (+/-2.0); Fractional Inspired Oxygen 21 %; HCO3 ABG 27.1 mEq/l (22.0-26.0); Oxygen Content ABG 17.8 %vol (16.0-22.0); Oxygen Saturation ABG 96.6 % (95.0-100.0); Oxyhemoglobin 95.1 % THb (90.0-100.0); PO2 ABG 84.8 mmHg (80.0-100.0); PO2 FiO2 Ratio Arterial Blood 4.04 %; Total Hemoglobin 13.3 g/dL (12.0-18.0); pH ABG 7.427 (7.350-7.450)
[2020-12-31 16:17] LABS: Basophils Percent Auto 0.6 % (0.2-1.2); Eosinophils Absolute Auto 0.2 K/mm3 (0-0.3); Eosinophils Percent Auto 2.3 % (0-4.4); Hematocrit 40.6 % (42.0-52.0); Hemoglobin 12.6 g/dL (14.0-18.0); Immature Granulocyte Absolute 0.02 K/mm3 (0.00-0.031); Immature Granulocyte Percent A 0.3 % (0-0.5); Lymphocytes Absolute Auto 2.09 K/mm3 (0.9-3.2); Lymphocytes Percent Auto 30.2 % (18.3-44.2); Mean Corpuscular Hemoglobin 24.2 pg (26-34); Mean Corpuscular Volume 77.9 fl (80-100); Monocytes Absolute Auto 0.6 K/mm3 (0.1-0.6); Monocytes Percent Auto 8.2 % (2.6-8.5); Neutrophils Absolute Auto 4.1 K/mm3 (1.3-6.7); Neutrophils Percent Auto 58.4 % (45.5-73.1); Platelet Count Result 304 k/mm3 (150-375); Red Blood Count 5.21 M/mm3 (4.6-6.20); White Blood Count 6.9 K/mm3 (4.5-10.0)
[2020-12-31 16:19] LABS: Device ROOM AIR; Modified Allen's Test Pass; Site Drawn LEFT RADIAL
[2020-12-31 16:29] LABS: INR 1.1
[2020-12-31 16:30] LABS: Partial Thromboplastin Time 30.9 SECONDS (22.3-36.8)
[2020-12-31 16:32] LABS: Anion Gap 8 mmol/L (8-16); Blood Urea Nitrogen 13 mg/dL (9-20); Calcium 8.4 mg/dL (8.4-10.2); Carbon Dioxide 30 mmol/L (22-30); Chloride 99 mmol/L (98-107); Estimated CRCL calculation 207 ml/min; Estimated Glomerular Filt Rate > 60; Glucose 200 mg/dL (75-110); Potassium 3.8 mmol/L (3.4-5.0); Sodium 137 mmol/L (137-145)
[2020-12-31 16:44] LABS: NT Pro B Type Natriuretic Pept 56 PG/ML (5-100); Troponin I < 0.012 ng/mL (0.000-0.034)
[2020-12-31] MEDS: ONDANSETRON INJ 4 MG/2 ML VIAL IV PUSH (16:55)
[2020-12-31] MEDS: ASPIRIN 81 MG CHEWABLE TABLET 324 MG PO (16:55)
[2020-12-31] MEDS: HYDROmorphone HCL INJ (*CRX) 1 MG/ML SYR 0.5 MG IV PUSH (17:20)
--- NOTE | 2020-12-31 19:15 | PC.NURSE ---
Report to RENATE Lyons, to continue care.
--- NOTE | 2020-12-31 20:22 | PM.IMHP ---
H&P: HPI History of Present Illness Date/Time: 12/31/20 20:22 Chief Complaint: Shortness of breath Narrative: 50-year-old male with past medical history of morbid obesity, obstructive sleep apnea, hypertension and prior pulmonary embolism who presented to the ER with increasing shortness of breath and chest pain. Since he had sepsis and kidney stones approximately 7 years ago he has had chronic shortness of breath. However over the last several months he has had increasing shortness of breath on exertion. He reports that over the last 3 weeks shortness breath on exertion has become quite severe. It is now accompanied by right-sided chest pain that radiates across his right shoulder up his right neck and into his jaw. It is been accompanied by a 50+ lb weight weight gain despite no significant changes in his diet. He has also noticed orthopnea and paroxysmal nocturnal dyspnea. He thought that his symptoms were due to his CPAP malfunctioning. He reports that his CPAP is usually set at a pressure of 19 but over the last 3 weeks he had noticed that his CPAP pressures were 13. He just received his new CPAP with appropriate settings. Despite being on his new CPAP is symptoms persisted. He reports that his oxygen saturations at rest are 96% but when he is up and ambulating his oxygen saturations were in the low 80s. He cannot walk from his bed to the bathroom without stopping to rest. His is noticed that he has had increased facial swelling and increased swelling of his hands and legs. The patient reports that several years ago he was on Lasix following his prolonged hospitalization for sepsis. However he had not been on Lasix in a long time. He denies a history of CHF. He has been having intermittent coughing that is nonproductive. He denies any fevers or chills. He denies palpitations. He has been compliant with his home Xarelto. He denies missing any doses of his anticoagulants. Review of Systems Review of Systems: Narrative: 12 systems were reviewed with pertinent positives and negatives per HPI. Except as documented in the HPI, all other systems were reviewed and are negative. [facility] Past Medical History Medical History (Updated 01/01/21 @ 02:21 by Arabella Crump DO) Bacteremia due to methicillin susceptible Staphylococcus aureus (MSSA) Associated with the affected kidney stone March 2014 Bowel obstruction Multiple bowel obstructions with most recent September 2020 Chronic lower back pain Concussion CPAP (continuous positive airway pressure) dependence CPAP pressure of 19 Diabetic gastroparesis Diverticulitis Erectile dysfunction Essential (primary) hypertension Kidney stone Migraines RIKI (obstructive sleep apnea) Peripheral neuropathy Primary insomnia Pulmonary embolism left lung following lap jae in July 2018, on Xarelto T2DM (type 2 diabetes mellitus) Hemoglobin A1c 9.2 (September 2020) Surgical History Surgical History Hx of cholecystectomy laparoscopic cholecystectomy on July of 2018 Family History Family History Mother Congestive heart failure Diabetes mellitus Social History Social History (Updated 01/01/21 @ 02:15 by Arabella Crump DO) Social History: Pt designates his Eula as his surrogate decision maker. Full code status. His PCP is Dr. Forde. He lives at home with his and daughter. 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 Gender identity (if verbalized by the patient): Male Sexual Orientation (if Verbalized by the Patient): Straight or Heterosexual Spiritual care concerns: Yes Agree to blood products: Yes Meds Home Medications and Allergies Home
[2020-12-31 21:05] LABS: Glucose Point of Care 163 (65-105)
[2020-12-31] MEDS: IRBESARTAN 150 MG TABLET PO (21:27)
[2020-12-31] MEDS: GABAPENTIN 300 MG CAPSULE PO (21:27)
[2020-12-31] MEDS: hydroCHLOROthiazide 12.5 MG CAPSULE PO (21:27)
[2020-12-31] MEDS: INSULIN GLARGINE (*BKC) 100 UNITS/ML 65 UNITS SUB-Q (21:29)
[2020-12-31] MEDS: FUROSEMIDE INJ 40 MG/4 ML VIAL IV PUSH (21:48)
[2020-12-31 21:49] LABS: Troponin I < 0.012 ng/mL (0.000-0.034)
[2020-12-31] MEDS: ACETAMINOPHEN 325 MG TABLET 650 MG PO (21:49)
[2020-12-31] MEDS: WATER FOR IRRIGATION, STERILE 1,000 ML BOTTLE 1000 ML (22:54)
[2020-12-31] MEDS: NEBIVOLOL HCL 5 MG TABLET 10 MG PO (23:16)
[2020-12-31] MEDS: amLODIPine BESYLATE 5 MG TABLET PO (23:16)
[2021-01-01] VITALS (25 sets, daily range): BP systolic 149–190; BP diastolic 69–89; PULSE 61–87; RESP 17–24; TEMP 36.1–37.3; O2SAT 93–99
--- NOTE | 2021-01-01 | ECHO_ITS ---
Patient Info Name: Jerome Olson Age: 50 years : 1970 Gender: Male Ht: 72 in Wt: 507 lbs BSA: 3.56 m2 HR: 72 bpm BP: 165 / 72 mmHg Technical Quality: Poor Exam Date: 01/01/2021 11:24 AM Exam Location: [facility] Patient Status: Inpatient Admit Date: 12/31/2020 Staff Ordering Physician: Adryan Robin MD Exhibition Designer: Homa Amor RDCS Attending Provider: Jonah Chacon MD Referring Physician: Lobito HUANG; Exam Type: CA echo dop color flow w con Study Info Indications R06.02 - Shortness of breath Contrast/Agitated Saline Contrast/Ag. Saline: Definity Amount: 1.00 ml Administered By: Kyle Garcia RN Existing IV Access: Yes IV Access Condition: patent with no signs of infiltration Reason for Poor Study: patient body habitus Summary 1. Left atrial chamber dimension is moderately enlarged. 2. Technically Difficult Study due to Body Habitus. 3. Left ventricular chamber dimension is normal. 4. contrast injection was used. 5. Left ventricular wall thickness is borderline increased. 6. Left ventricular systolic function is normal with an estimated ejection fraction of 5560.0 %. Left Ventricle Left ventricular chamber dimension is normal. Left ventricular systolic function is normal with an estimated ejection fraction of 5560.0 %. Left ventricular wall thickness is borderline increased. Right Ventricle RV not well visualized. Left Atria Left atrial chamber dimension is moderately enlarged. Right Atria RA not well visualized. Aortic Valve AV not well visualized. Pulmonic Valve Pulmonary valve is not well visualized. Mitral Valve MV not well visualized. Tricuspid Valve TV not well visualized. Left Ventricular Outflow Tract Name Value Normal LVOT 2D LVOT Diameter 2.19 cm LVOT Doppler LVOT Peak Gradient 5 mmHg LVOT Mean Gradient 3 mmHg LVOT VTI 26.32 cm LVOT VTI/AV VTI Ratio 0.72 LVOT Stroke Volume 99.05 ml LVOT CO 18.59 l/min LVOT CI 5.22 L/min/m2 Pulmonic Valve Name Value Normal PV Doppler PV Peak Gradient 4 mmHg Mitral Valve Name Value Normal MV Doppler MV Decel Roane 357.58 cm/s2 MV PHT 0 s MV Area (PHT) 3.04 cm2 4.00-5.00 MV Diastolic Function
[2021-01-01] MEDS: HYDROcodone/acetaminophen (*CRX) 5-325 MG TABLET 1 TAB PO ×3 (00:01→16:45)
[2021-01-01] MEDS: RIVAROXABAN 20 MG TABLET PO ×2 (00:01→20:37)
[2021-01-01 01:04] LABS: Troponin I < 0.012 ng/mL (0.000-0.034)
[2021-01-01] MEDS: predniSONE 40 MG, predniSONE 10 MG 50 MG PO ×3 (02:18→14:22)
[2021-01-01 05:10] LABS: Hematocrit 40.2 % (42.0-52.0); Hemoglobin 12.2 g/dL (14.0-18.0); Mean Corpuscular HGB Conc 30.3 g/dl (32-36); Mean Corpuscular Volume 79.1 fl (80-100); Mean Platelet Volume 10.4 fl (7.4-10.4); Platelet Count Result 300 k/mm3 (150-375); Red Blood Count 5.08 M/mm3 (4.6-6.20)
--- NOTE | 2021-01-01 05:25 | PC.NURSE ---
12/31/20 This patient, Jerome Olson, was admitted to IMU Room 207-01. Patient/family oriented to hospital policies and general routines including ID bracelet, bed and alarms, visiting hours, pain management, procedures, bathroom and other care routines, personal items, smoking policy, room service/diet, and visiting hours. Information on how to activate the Rapid Response Team has been discussed. Patient/Family are encouraged to report perceived risks to care and to ask questions if they do not understand what they are told or what they should do.
[2021-01-01 05:35] LABS: Anion Gap 5 mmol/L (8-16); Blood Urea Nitrogen 16 mg/dL (9-20); Calcium 8.8 mg/dL (8.4-10.2); Carbon Dioxide 32 mmol/L (22-30); Chloride 99 mmol/L (98-107); Estimated CRCL calculation 188 ml/min; Estimated Glomerular Filt Rate > 60; Glucose 245 mg/dL (75-110); Potassium 3.5 mmol/L (3.4-5.0); Sodium 136 mmol/L (137-145)
[2021-01-01 05:41] LABS: Hemoglobin A1C 9.5 % (<5.7)
[2021-01-01] MEDS: GABAPENTIN 300 MG CAPSULE PO ×3 (06:03→21:29)
[2021-01-01 07:58] LABS: Glucose Point of Care 293 (65-105)
[2021-01-01] MEDS: INSULIN GLARGINE (*BKC) 100 UNITS/ML 65 UNITS SUB-Q ×2 (09:15→20:41)
[2021-01-01] MEDS: FUROSEMIDE INJ 40 MG/4 ML VIAL IV PUSH ×2 (09:16→16:43)
[2021-01-01] MEDS: INSULIN ASPART (*BKC) 100 UNITS/ML SUB-Q (09:16)
[2021-01-01] MEDS: ASPIRIN 81 MG CHEWABLE TABLET PO (09:17)
--- NOTE | 2021-01-01 09:18 | PM.CNCAR ---
Assessment and Plan Assessment and plan (1) History of pulmonary embolism: Code(s): Z86.711 - Personal history of pulmonary embolism Status: Chronic Assessment and Plan: Pt has hx of pulmonary embolism. consider checking Ddimer to r/o new episode. Cont anticoagulation with Xarelto. 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 (4) RIKI (obstructive sleep apnea): Code(s): G47.33 - Obstructive sleep apnea (adult) (pediatric) Status: Chronic (5) SOB (shortness of breath): Code(s): R06.02 - Shortness of breath Status: Acute Assessment and Plan: Pt presented with worsening SOB and desaturation. Recently had pulmonary evaluation. Was supposed to have some tests. Consider pulmonary consult to complete diagnostic workup. Consider screening for COVID. (6) Chest discomfort: Code(s): R07.89 - Other chest pain Status: Acute Assessment and Plan: Pt had some R sided chest discomfort while coughing 3 sets of cardiac enzymes negative No acute EKG changes Will arrange for ECHO to evaluate LV function and r/o structural heart disease as well as check pulmonary pressure. He had recently stress test which was negative. Cont medical management. Thank you for consult. Dg bernstein. History of Present Illness History of Present Illness Consult date/time: 01/01/21 CC: SOB HPI: 50 y/o AAM with PMH of DM, RIKI, HTN, morbid obesity and pulmonary embolism presented to [facility] due to SOB. Pt staztes that he does have chronic SOB which was getting worse recently. 4 days ago he had outpatient pulmonary consultation and was scheduled to have some pulmonary tests. Since his SOB was worse he presented to ER where saturation according to pt was in 80's. He had some cough and right sided chest tightness while coughing.Denies fever or chills. According to records since he had sepsis and kidney stones approximately 7 years ago he has had chronic shortness of breath. He has gained significantly weight (50+ lb). He is in CPAP for RIKI. Denies cardiac problems. States that had stress test about a year ago at [facility] which was normal. Denies ECHO in the past. Pt does have hx of pulmonary embolism (07/26) for which he takes anticoagulation (Xarelto). He denies missing any doses of his anticoagulants. Pt was seen and examined, chart was reviewed, case d/w pt's nurse. Reason For Visit: Chest pain, pickwickian syndrome Review of Systems Review of Systems: All systems reviewed & are unremarkable except as noted in HPI and below Constitutional: Constitutional: Reports as per HPI Eyes: Eyes: Reports as per HPI ENT: Reports system reviewed and no additional complaints, except as documented and Reports as per HPI Cardiovascular: Cardiovascular: Reports as per HPI Respiratory: Respiratory: Reports as per HPI Gastrointestinal: Gastrointestinal: Reports as per HPI Genitourinary: Genitourinary: Reports as per HPI Musculoskeletal: Musculoskeletal: Reports as per HPI [facility] Past Medical History Medical History (Updated 01/01/21 @ 19:17 by Colleen Dave MD) Bacteremia due to methicillin susceptible Staphylococcus aureus (MSSA) Associated with the affected kidney stone March 2014 Bowel obstruction Multiple bowel obstructions with most recent September 2020 Chronic lower back pain Concussion CPAP (continuous positive airway pressure) dependence CPAP press
[2021-01-01] MEDS: PERFLUTREN LIPID MICROSPHERES 1.5 ML VIAL DILUTED TO 10 ML TOTAL VOLUME IV PUSH (11:47)
--- NOTE | 2021-01-01 12:37 | PC.NURSE ---
Notified Dr. Dave of patient's blood glucose of 496 and BP 172/80. BP has been elevated since admission. New order for 15 units Aspart one time and 10mg Q4H PRN IVP hydralazine for SBP >160
[2021-01-01 12:39] LABS: Glucose Point of Care 420 (65-105)
[2021-01-01] MEDS: INSULIN ASPART (*BKC) 100 UNITS/ML 15 UNITS SUB-Q ×2 (12:46→18:10)
[2021-01-01] MEDS: hydrALAZINE HCL 20 MG/ML VIAL 10 MG IV PUSH ×3 (12:47→18:12)
[2021-01-01 12:53] LABS: Glucose Point of Care 496 (65-105)
[2021-01-01] MEDS: diphenhydrAMINE HCl INJ 50 MG/ML VIAL IV PUSH (14:22)
[2021-01-01] MEDS: ACETAMINOPHEN 325 MG TABLET 650 MG PO ×2 (14:29→20:38)
--- NOTE | 2021-01-01 14:44 | PM.IMPN ---
Progress Note: A&P Assessment and Plan (1) Atypical chest pain: Code(s): R07.89 - Other chest pain Status: Acute Assessment and Plan: pt with ongoing substernal chest pain percocet ordered PPI added repeat EKG reviewed w Cardio repeat Trop x 2 pending (2) CHF (congestive heart failure): Qualifiers: Heart failure chronicity: acute Heart failure type: unspecified Qualified Code(s): I50.9 - Heart failure, unspecified Code(s): I50.9 - Heart failure, unspecified Status: Acute Assessment and Plan: Lasix strict Is/Os Daily weights fluid restiction (3) Hypertensive urgency: Code(s): I16.0 - Hypertensive urgency Status: Acute Assessment and Plan: Nifedipine 30 XL Q am if BP not controlled w home meds Hydralazine 20 mg IV push q.6 hours p.r.n. 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) use of insulin Code(s): E11.65 - Type 2 diabetes mellitus with hyperglycemia Status: Acute Assessment and Plan: uncontrolled insulin increased anticipate ongoing adjustment until controlled (5) History of pulmonary embolism: Code(s): Z86.711 - Personal history of pulmonary embolism Status: Chronic Assessment and Plan: CTA w/o PE at this time (6) RIKI (obstructive sleep apnea): Code(s): G47.33 - Obstructive sleep apnea (adult) (pediatric) Status: Chronic Assessment and Plan: cont using CPAP Subjective Date/time seen: 01/01/21 14:44 blood glucose not at goal bp not at goal Patient counseled on need to lose weight. He is very resistant to the idea that he may be responsible for his weight. He states that he does not eat excessively. He does agree to dietary consult. Patient does not complain of pain while I am in the room but per RN he is complaining of chest pain and requesting medication. Review of Systems Review of Systems: All systems reviewed & are unremarkable except as noted in HPI and below Exam Narrative: Exam Narrative: GEN: NAD, AAOx3, cooperative, super morbidly obese HEENT: NCAT, MMM, EOMI Neck: no JVD Heart: S1S2 RRR Lungs: CTA B/l Abd: soft, NT, ND, bowel sounds normoactive Ext: moves all, no cyanosis, no clubbing, + edema Neuro: moves all extremities equally, Psych: mood and affect congruent Objective Data Vital Signs Vital Signs: Vital Signs - 24 hr 12/31/20 15:27 12/31/20 15:31 12/31/20 15:37 Temperature 99 F Pulse Rate 77 77 77 Respiratory Rate 20 22 H Blood Pressure 168/87 H 168/87 H Pulse Oximetry 98 98 12/31/20 15:45 12/31/20 15:46 12/31/20 16:00 Temperature Pulse Rate 81 73 77 Respiratory Rate 22 H 23 H 24 H Blood Pressure 171/79 H Pulse Oximetry 96 96 97 12/31/20 16:01 12/31/20 16:17 12/31/20 17:31 Temperature Pulse Rate 80 73 73 Respiratory Rate 12 15 16 Blood Pressure 195/117 H 143/89 H Pulse Oximetry 99 97 97 12/31/20 17:32 12/31/20 18:12 12/31/20 18:31 Temperature Pulse Rate 71 68 67 Respiratory Rate 17 19 16 Blood Pressure 167/85 H Pulse Oximetry 95 96 97 12/31/20 20:36 12/31/20 22:00 12/31/20 22:41 Temperature 98.7 F Pulse Rate 71 80 74 Respiratory Rate 20 16 Blood Pressure 185/108 H Pulse Oximetry 100 98 12/31/20 23:16 12/31/20 23:42 01/01/21 00:00 Temperature 97.0 F L Pulse Rate 80 80 72 Respiratory Rate 18 Blood Pressure 192/86 H Pulse Oximetry 95 01/01/21 00:07 01/01/21 02:00 01/01/21 03:11 Temperature Pulse Rate 87 71 Respiratory Rate 18 Blood Pressure 155/80 H Pulse Oximetry 95 01/01/21 04:00 01/01/21 06:00 01/01/21 07:32 Temperature 97.4 F L 97.3 F L Pul
[2021-01-01] MEDS: NIFEdipine 30 MG TAB.ER.24 PO (15:26)
[2021-01-01] MEDS: ONDANSETRON INJ 4 MG/2 ML VIAL IV PUSH (15:57)
[2021-01-01 17:57] LABS: Glucose Point of Care 439 (65-105)
--- NOTE | 2021-01-01 18:01 | ECG_ITS ---
Measurements Intervals Phelps Rate: 84 P: 58 ID: [id number] QRS: 43 QRSD: 108 T: 30 QT: 382 QTc: 452 Interpretive Statements SINUS RHYTHM DELAYED PRECORDIAL R/S TRANSITION NONSPECIFIC T-WAVE ABNORMALITY- INF/HIGH LAT LEADS BASELINE WANDER- V1-V3 BORDERLINE ECG Electronically Signed On 01-02-2021 7:43:32 CDT by Rom Bills D.O.
[2021-01-01] MEDS: oxyCODONE/ACETAMINOPHEN (*CRX) 5-325 MG TABLET 1 TABLET PO (18:12)
[2021-01-01] MEDS: PANTOPRAZOLE SODIUM IV 40 MG VIAL IV PUSH (18:16)
--- NOTE | 2021-01-01 18:58 | PC.NURSE ---
Pt has had chest pain throughtout the day with [facility] somewa helping . After returning for chest CTA, patient seemed more in pain and depressed. Dr. Dave notified. New orders for 12 lead EKG, Stat Trop, protonix 40mg IVP Q12H (first dose now), Percocet 5/325 PO once. If Percocet works d/c [facility] and schedule Percocet q6h PRN for pain. Pt SBP still elevated after 10mg Hydralazine, recheck BP. When rechecked BP was 182/70, 10mg Hydralazine given. blood glucose check was 437. One time order for 15 units Novolog SQ.
[2021-01-01 19:01] LABS: Troponin I < 0.012 ng/mL (0.000-0.034)
[2021-01-01] MEDS: NEBIVOLOL HCL 5 MG TABLET 10 MG PO (19:47)
[2021-01-01 19:54] LABS: D Dimer 0.32 ug/mL (<0.48)
[2021-01-01 19:57] LABS: Cholesterol 222 mg/dL (0-200); HDL Direct 42 mg/dL; Triglycerides 202 mg/dL (<150)
[2021-01-01 20:08] LABS: LDL Cholesterol Direct 140 mg/dL
[2021-01-01] MEDS: IRBESARTAN 150 MG TABLET PO (20:35)
[2021-01-01] MEDS: hydroCHLOROthiazide 12.5 MG CAPSULE PO (20:36)
[2021-01-01 20:44] LABS: Glucose Point of Care 462 (65-105)
[2021-01-01] MEDS: INSULIN ASPART (*BKC) 100 UNITS/ML 8 UNITS SUB-Q (21:28)
[2021-01-01 21:41] LABS: Troponin I < 0.012 ng/mL (0.000-0.034)
[2021-01-02] VITALS (7 sets, daily range): BP systolic 148–161; BP diastolic 83–84; PULSE 65–84; RESP 20–22; TEMP 36.3–36.4; O2SAT 96–97
[2021-01-02 00:23] LABS: Glucose Point of Care 498 (65-105)
[2021-01-02] MEDS: INSULIN ASPART (*BKC) 100 UNITS/ML 15 UNITS SUB-Q (00:43)
[2021-01-02 04:09] LABS: Glucose Point of Care 437 (65-105)
[2021-01-02 05:15] LABS: Hematocrit 39.6 % (42.0-52.0); Hemoglobin 12.2 g/dL (14.0-18.0); Mean Corpuscular HGB Conc 30.8 g/dl (32-36); Mean Corpuscular Hemoglobin 24.1 pg (26-34); Mean Corpuscular Volume 78.1 fl (80-100); Mean Platelet Volume 10.3 fl (7.4-10.4); Platelet Count Result 325 k/mm3 (150-375); Red Blood Count 5.07 M/mm3 (4.6-6.20); Red Cell Distribution Width 16.1 % (11.5-14.5); White Blood Count 10.7 K/mm3 (4.5-10.0)
[2021-01-02] MEDS: GABAPENTIN 300 MG CAPSULE PO ×2 (05:15→13:40)
[2021-01-02] MEDS: INSULIN ASPART (*BKC) 100 UNITS/ML 20 UNITS SUB-Q (05:16)
[2021-01-02] MEDS: PANTOPRAZOLE SODIUM IV 40 MG VIAL IV PUSH (05:21)
[2021-01-02 05:31] LABS: Anion Gap 9 mmol/L (8-16); Blood Urea Nitrogen 18 mg/dL (9-20); Calcium 9.3 mg/dL (8.4-10.2); Carbon Dioxide 28 mmol/L (22-30); Chloride 98 mmol/L (98-107); Estimated CRCL calculation 188 ml/min; Estimated Glomerular Filt Rate > 60; Glucose 421 mg/dL (75-110); Potassium 3.9 mmol/L (3.4-5.0); Sodium 135 mmol/L (137-145)
[2021-01-02 07:56] LABS: Glucose Point of Care 369 (65-105)
[2021-01-02] MEDS: INSULIN GLARGINE (*BKC) 100 UNITS/ML 65 UNITS SUB-Q (09:05)
[2021-01-02] MEDS: INSULIN ASPART (*BKC) 100 UNITS/ML SUB-Q ×3 (09:06→12:15)
[2021-01-02] MEDS: hydrALAZINE HCL 50 MG TABLET PO ×2 (09:06→12:16)
[2021-01-02] MEDS: FUROSEMIDE INJ 40 MG/4 ML VIAL IV PUSH (09:07)
[2021-01-02] MEDS: NIFEdipine 30 MG TAB.ER.24 PO (09:07)
[2021-01-02] MEDS: oxyCODONE/ACETAMINOPHEN (*CRX) 5-325 MG TABLET 1 TABLET PO (09:12)
[2021-01-02] MEDS: ASPIRIN 81 MG CHEWABLE TABLET PO (09:20)
--- NOTE | 2021-01-02 09:59 | PM.PNCARD ---
Progress Note: A&P Assessment and Plan (1) History of pulmonary embolism: Code(s): Z86.711 - Personal history of pulmonary embolism Status: Chronic Assessment and Plan: Pt has hx of pulmonary embolism. consider checking Ddimer to r/o new episode. Cont anticoagulation with Xarelto. (2) Morbid obesity with BMI of 60.0-69.9, adult: Code(s): E66.01 - Morbid (severe) obesity due to excess calories; Z68.44 - Body mass index [BMI] 60.0-69.9, adult Status: Chronic (3) Type 2 diabetes mellitus with hyperglycemia: Qualifiers: Diabetes mellitus manager long term care insulin use: with manager long term care use Qualified Code(s): E11.65 - Type 2 diabetes mellitus with hyperglycemia; Z79.4 - terminal make up operator (current) use of insulin Code(s): E11.65 - Type 2 diabetes mellitus with hyperglycemia Status: Acute Assessment and Plan: Management per PC. (4) RIKI (obstructive sleep apnea): Code(s): G47.33 - Obstructive sleep apnea (adult) (pediatric) Status: Chronic (5) SOB (shortness of breath): Code(s): R06.02 - Shortness of breath Status: Acute Assessment and Plan: Pt presented with worsening SOB and desaturation. Recently had pulmonary evaluation. Was supposed to have some tests. Consider pulmonary consult to complete diagnostic workup. Consider screening for COVID. (6) Chest discomfort: Code(s): R07.89 - Other chest pain Status: Acute Assessment and Plan: Pt had some R sided chest discomfort while coughing 3 sets of cardiac enzymes negative No acute EKG changes Will arrange for ECHO to evaluate LV function and r/o structural heart disease as well as check pulmonary pressure. He had recently stress test which was negative. Cont medical management. Thank you for consult. Dg bernstein. (7) Diastolic heart failure: Code(s): I50.30 - Unspecified diastolic (congestive) heart failure Status: Acute Assessment and Plan: Acute on chronic, continue with diuresis, mainly he needs good blood pressure control. Also with significant shortness breath with dyspnea exertion he would need to have a cardiac evaluation possibly with stress test at some point when his blood pressure is good and when he is otherwise feeling slightly better, and out of the heart failure status Subjective Date/time seen: 01/02/21 09:59 He feels better today, had right-sided chest pain, cardiac enzymes are still negative, no new EKG changes. His blood pressure is better after adjusting his medication now he is on hydralazine oral 50 mg 3 times daily Exam Const: General: alert and awake; No acute distress HENMT: Head: normal to inspection and atraumatic Ears: hearing grossly normal bilaterally Face and sinus: normal facial exam Eyes: General: appearance normal, both eyes and all related structures Pupils: Equal, round and reactive pupils present EOM: EOMs intact bilaterally Neck: Neck: normal visual inspection and no JVD Chest: Chest palpation & inspection: normal inspection of the chest Resp: Effort & Inspection: normal respiratory effort, no respiratory distress and other (decreased breath sounds, CPAP noted) Auscultation: clear to auscultation bilaterally Cardio: Jugular venous distension: no JVD Rate: regular rate Heart sounds: S1 normal heart sound present, S2 normal heart sound present and no murmurs GI: Inspection: normal to inspection and other (morbidly obese) Auscultation: normal bowel sounds Skin: General skin exam: normal color Neuro: Cranial nerves: Yes Equal, round and reactive pupils present Extrem: General: normal to inspection and no clubbing, cyanosis or edema Objective Data Vital Signs Vital Signs: Vital Signs - 24 hr 01/01/21 10:00 01/01/21 10:04 01/01/21 12:00 Temperature Pulse Rate 73 75 Respiratory Rate Blood Pressure Pulse Oximetry 96 96 01/01/21 12:32 01/01/21 14:00 01/01/21 16:00 Temperature 36.8 C Pulse Rate 7
--- NOTE | 2021-01-02 10:48 | PM.DS ---
DS: Admitting Diagnosis Admitting Diagnosis Admitting Diagnosis: Hypertensive urgency DS: Discharge Diagnosis Discharge Diagnosis (1) Diastolic heart failure: Code(s): I50.30 - Unspecified diastolic (congestive) heart failure Status: Acute (2) Hypertensive urgency: Code(s): I16.0 - Hypertensive urgency Status: Acute (3) Chest discomfort: Code(s): R07.89 - Other chest pain Status: Acute (4) Obesity hypoventilation syndrome: Code(s): E66.2 - Morbid (severe) obesity with alveolar hypoventilation Status: Acute (5) History of pulmonary embolism: Code(s): Z86.711 - Personal history of pulmonary embolism Status: Chronic (6) Chronic anticoagulation: Code(s): Z79.01 - [facility] (current) use of anticoagulants Status: Chronic (7) Morbid obesity with BMI of 60.0-69.9, adult: Code(s): E66.01 - Morbid (severe) obesity due to excess calories; Z68.44 - Body mass index [BMI] 60.0-69.9, adult Status: Chronic (8) Type 2 diabetes mellitus with hyperglycemia: Qualifiers: Diabetes mellitus intermediate card tender insulin use: with senior care use Qualified Code(s): E11.65 - Type 2 diabetes mellitus with hyperglycemia; Z79.4 - truck terminal manager (current) use of insulin Code(s): E11.65 - Type 2 diabetes mellitus with hyperglycemia Status: Acute (9) Peripheral neuropathy: Code(s): G62.9 - Polyneuropathy, unspecified Status: Acute (10) RIKI (obstructive sleep apnea): Code(s): G47.33 - Obstructive sleep apnea (adult) (pediatric) Status: Chronic DS: Summary Hospital Course Reason for hospitalization: Shortness of breath with chest discomfort Hospital Course: 50-year-old morbidly obese gentleman with type 2 diabetes, obstructive sleep apnea, hypertension, diastolic congestive heart failure presented the emergency room with increasing shortness of breath headache and increased dyspnea at rest. He was treated with p.o. nifedipine and IV plus p.o. hydralazine as well as IV furosemide for diuresis. He subsequently produced over 6 L of urine during his hospital stay. His home antihypertensives including nebivolol, amlodipine, and irbesartan with hydrochlorothiazide were continued as well. He received prednisone in the emergency department which causes blood sugar to rise into the 400s. But it was declining into the 300s at the time of discharge. His usual fasting blood sugar reading is the in the low 200s at home. His last A1c was 8.0. On day of discharge his headache had resolved. By day of discharge his blood pressures were in the 140s systolic and 80s diastolic. It was presumed that he is symptoms were all due to hypertensive urgency. His telemetry was unremarkable with sinus rhythm. His EKG showed no ischemic changes. His cardiac enzymes were negative. BNP was 56. He did have a chronic mild anemia with hemoglobin at 12.2 hematocrit 39.6 with unremarkable white count and platelets. His sodium was 135 potassium 3.9 chloride 98 carbon dioxide 28 BUN 18 and creatinine 0.8. Echo: 1. Left atrial chamber dimension is moderately enlarged. 2. Technically Difficult Study due to Body Habitus. 3. Left ventricular chamber dimension is normal. 4. contrast injection was used. 5. Left ventricular wall thickness is borderline increased. 6. Left ventricular systolic function is normal with an estimated ejection fraction of 5560.0 %. His chest x-ray showed no acute process and pulmonary CTA was unremarkable. Urine showed 2+ protein with both white cells and red cells. Follow-up ordered as outpatient. Cholesterol was 222 with LDL 140. Atorvastatin 40 mg added. On day of discharge Aldactone 25 mg daily was added. He was to have follow-up basic metabolic panel in 3-4 days. He was to follow-up with Dr. Forde and 5-6 days. Patient was also seen by Cardiology, Dr. Glaser, during this admission. He has to make a follow-up appointment in
[2021-01-02 11:48] LABS: Glucose Point of Care 428 (65-105)
[2021-01-02] MEDS: SPIRONOLACTONE 25 MG TABLET PO (12:15)
[2021-01-02 12:37] LABS: Glucose Point of Care 429 (65-105)
[2021-01-02] MEDS: INSULIN ASPART (*BKC) 100 UNITS/ML 8 UNITS SUB-Q (13:40)
[2021-01-02 14:04] LABS: Glucose Point of Care 418 (65-105)
== END 2021-01-02 14:07 | disposition home or self-care (01) ==
LOC: ANHED 18:15 → ANHIMU 21:55
PROVIDERS: Emergency Medicine; Hospitalist; Internal Medicine; Specialist; Admitting Provider Family Medicine; Emergency Provider Emergency Medicine; PCP Family Medicine; Visit Provider Internal Medicine
DX: I16.0 Hypertensive urgency (principal); I50.30 Unspecified diastolic (congestive) heart failure; R07.89 Other chest pain; R06.02 Shortness of breath; E11.42 Type 2 diabetes mellitus with diabetic polyneuropathy; E11.65 Type 2 diabetes mellitus with hyperglycemia; G47.33 Obstructive sleep apnea (adult) (pediatric); I11.0 Hypertensive heart disease with heart failure; Z68.44 Body mass index [BMI] 60.0-69.9, adult; Z86.711 Personal history of pulmonary embolism; Z79.4 Long term (current) use of insulin; Z79.01 Long term (current) use of anticoagulants; E66.01 Morbid (severe) obesity due to excess calories
CPT/HCPCS: 36415; 36600; 70450; 71045; 71275; 80048; 80061; 82805; 82948; 83036; 83880; 84484; 85025; 85027; 85380; 85610; 85730; 87040; 93005; 96374; 96375; 96376; 99285; A9270; C8929; C9113; G0378; J0360; J1170; J1200; J1815; J1940; J2405; J7512; Q9957; Q9967

== ENCOUNTER 2021-01-05 16:06 | Outpatient (CLI) | payer OTHER, SELFPAY ==
[2021-01-05 16:41] LABS: Anion Gap 7 mmol/L (8-16); Blood Urea Nitrogen 18 mg/dL (9-20); Carbon Dioxide 31 mmol/L (22-30); Chloride 101 mmol/L (98-107); Estimated Glomerular Filt Rate > 60; Glucose 214 mg/dL (75-110); Potassium 4.1 mmol/L (3.4-5.0); Sodium 139 mmol/L (137-145)
== END 2021-01-05 16:07 | disposition home or self-care (01) ==
LOC: ANHLAB 16:08
PROVIDERS: PCP Family Medicine; Visit Provider Internal Medicine
DX: I16.0 Hypertensive urgency (principal)
CPT/HCPCS: 36415; 80048

== ENCOUNTER 2021-01-08 08:42 | Outpatient (CLI) | payer OTHER, SELFPAY | END 2021-01-08 08:43 | disposition home or self-care (01) | LOC: ANHCOVIDVC 08:42 | PROVIDERS: PCP Family Medicine | DX: Z23 Encounter for immunization (principal) | CPT/HCPCS: 0002A; 91300 ==

== ENCOUNTER 2021-02-02 10:47 | Outpatient (CLI) | payer OTHER, SELFPAY ==
[2021-02-02 11:28] LABS: Hematocrit 42.7 % (42.0-52.0); Hemoglobin 12.7 g/dL (14.0-18.0); Mean Corpuscular HGB Conc 29.7 g/dl (32-36); Mean Corpuscular Hemoglobin 23.7 pg (26-34); Mean Corpuscular Volume 79.8 fl (80-100); Mean Platelet Volume 9.8 fl (7.4-10.4); Platelet Count Result 329 k/mm3 (150-375); Red Blood Count 5.35 M/mm3 (4.6-6.20); Red Cell Distribution Width 15.9 % (11.5-14.5)
[2021-02-02 11:41] LABS: Alanine Aminotransferase 22 U/L (4-50); Albumin Level 4.5 g/dL (3.5-5.1); Alkaline Phosphatase 64 U/L (38-126); Anion Gap 13 mmol/L (8-16); Aspartate Amino Transferase 25 U/L (17-59); Bilirubin,Total 0.4 mg/dL (0.2-1.3); Blood Urea Nitrogen 19 mg/dL (9-20); Calcium 9.5 mg/dL (8.4-10.2); Carbon Dioxide 24 mmol/L (22-30); Chloride 104 mmol/L (98-107); Estimated Glomerular Filt Rate > 60; Glucose 154 mg/dL (75-110); Magnesium 1.9 mg/dL (1.6-2.3); Sodium 141 mmol/L (137-145)
[2021-02-02 11:47] LABS: NT Pro B Type Natriuretic Pept 32 pg/mL (5-100)
== END 2021-02-02 10:48 | disposition home or self-care (01) ==
LOC: ANHLAB 10:49
PROVIDERS: PCP Family Medicine; Visit Provider Internal Medicine Critical Care Medicine
DX: R06.02 Shortness of breath (principal); I50.30 Unspecified diastolic (congestive) heart failure
CPT/HCPCS: 36415; 80053; 83735; 83880; 84443; 85027

== ENCOUNTER → 2021-02-03 00:05 | Outpatient (CLI) | payer OTHER, SELFPAY ==
[2021-02-03 18:21] LABS: SARS-CoV-2 RNA PCR Negative
== END ==
PROVIDERS: PCP Family Medicine; Visit Provider Internal Medicine Critical Care Medicine
DX: R68.89 Other general symptoms and signs (principal); Z20.822 Contact with and (suspected) exposure to COVID-19
CPT/HCPCS: C9803; U0003; U0005

== ENCOUNTER 2021-02-05 11:14 | Outpatient (CLI) | payer OTHER, SELFPAY ==
--- NOTE | 2021-02-19 10:33 | WPDSLEEPSTUD ---
Sleep Study Date of Study: 02/05/21 Ordering Provider: Jason Samuels APRN Interpreting Physician: Elda Hutson MD Sleep Study Type: CPAP Titration Height: 1.83 m Weight: 219.085 kg Body Mass Index: 65.4 Neck Circumference (inches): 25 [place]: 6 Reason for Sleep Study known RIKI using CPAP 05/28/2003 - Split night study at [facility]; RDI 99.3, 56% justin, optimal pressure 19 cm with compliance showing strong efforts to use nightly, AHI 2.4. Sleep History Jerome Olson is a 50 year old man with obstructive sleep apnea syndrome on CPAP for years. An office note on July 31, 2003 shows that he started CPAP at 19 cm, and has been using his second CPAP machine for the last 7-8 years. It is not working well, and it needs to be replaced. His sleep questionnaire was not available for review. HE has multiple medical co-morbidities including History of pulmonary embolus after laparoscopic cholecystectomy in 2017 on Xarelto, chronic pain, diastolic congestive heart failure, hypertension, and type 2 diabetes mellitus. [facility] Past Medical History Medical History (Updated 02/19/21 @ 11:17 by Elda Hutson MD) Bacteremia due to methicillin susceptible Staphylococcus aureus (MSSA) Associated with the affected kidney stone March 2014 Bowel obstruction Multiple bowel obstructions with most recent September 2020 Chronic lower back pain Concussion CPAP (continuous positive airway pressure) dependence CPAP pressure of 19 Diabetic gastroparesis Diastolic heart failure Diverticulitis Erectile dysfunction Essential (primary) hypertension Kidney stone Migraines Obstructive sleep apnea RIKI (obstructive sleep apnea) Peripheral neuropathy Primary insomnia Pulmonary embolism left lung following lap jae in July 2018, on Xarelto SOB (shortness of breath) T2DM (type 2 diabetes mellitus) Hemoglobin A1c 9.2 (September 2020) Surgical History Surgical History Hx of cholecystectomy laparoscopic cholecystectomy on July of 2018 Family History Family History Mother Congestive heart failure Diabetes mellitus Social History Social History Social History: Pt designates his , Eula as his surrogate decision maker. Full code status. His PCP is Dr. Forde. He lives at home with his and daughter. 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 Gender identity (if verbalized by the patient): Male Spiritual care concerns: Yes Agree to blood products: Yes Medications Home Medications Medication Instructions Recorded Confirmed Type Basaglar KwikPen U-100 Insulin 65 unit SUBCUT BID 09/24/20 12/31/20 History gabapentin 300 mg PO TID 09/24/20 12/31/20 History nebivolol 10 mg tablet 10 mg PO HS #90 tablet 10/19/20 12/31/20 Rx rivaroxaban 20 mg tablet 20 mg PO HS #30 tablet 10/19/20 12/31/20 Rx insulin aspart U-100 100 unit/mL See Rx Instructions .ROUTE 11/05/20 12/31/20 Rx subcutaneous solution .COMPLEX #50 ml pen needle, diabetic 29 gauge x #100 ea 11/05/20 01/01/21 Rx 1/2 irbesartan 150 1 tablet PO HS #90 tablet 11/16/20 12/31/20 Rx mg-hydrochlorothiazide 12.5 mg tablet amlodipine 5 mg tablet 5 mg PO HS #90 tablet 12/03/20 12/31/20 Rx blood sugar diagnostic #100 ea 12/04/20 01/01/21 Rx acetaminophen [Mapap 650 mg PO Q4H PRN #0 tablet 01/02/21 Rx (acetaminophen)] acetaminophen 300 mg-codeine 15 mg 1 tablet PO TID PRN #30 tablet 01/05/21 01/05/21 Rx tablet atorvastatin 40 mg tablet 40 mg PO HS #30 tablet 01/05/21 01/05/21 Rx fteeumxcox-kvnsiqvlvdbxt-rrrssvaq 1 cap PO Q4H PRN #30 cap 01/05/21 01/05/21 Rx
[2021-02-19 11:11] VITALS: BMI 65.4
== END 2021-02-05 11:15 | disposition home or self-care (01) ==
LOC: ANHCSM 11:15
PROVIDERS: PCP Family Medicine; Visit Provider Nurse Practitioner Family
DX: G47.33 Obstructive sleep apnea (adult) (pediatric) (principal)
CPT/HCPCS: 95811

== ENCOUNTER 2021-05-17 08:20 | Inpatient (IN) | payer OTHER, SELFPAY ==
[2021-05-17] VITALS (12 sets, daily range): BP systolic 122–155; BP diastolic 49–85; PULSE 74–87; RESP 12–18; TEMP 36.9–37.3; O2SAT 95–99; BMI 66.6
--- NOTE | ~2021-05-17 | XR_ITS ---
EXAMINATION: XR chest 1V portable DATE: 05/18/2021 10:55 INDICATION: Shortness of breath. TECHNIQUE: A single frontal view of the chest was obtained on 3 radiographs. COMPARISON: Chest single view 12/31/2020, CT abdomen and pelvis 05/17/2021 FINDINGS: The chest demonstrates clear lungs without pneumonia, pleural effusion, or pneumothorax. Th e heart size is normal. The nasogastric tube tip is beyond the inferior margin of the radiograph, but at least to the stomach. IMPRESSION: 1. No acute cardiopulmonary disease. Reviewed, dictated and finalized at location A.
--- NOTE | ~2021-05-17 | CT_ITS ---
EXAMINATION: CT abdomen pelvis wo con DATE: 05/17/2021 10:25 INDICATION: Abdominal pain TECHNIQUE: Computed tomography (CT) of the abdomen and pelvis was performed without intravenous contr ast. The dose-length product (DLP) was 1691.77 mGy-cm. Automated exposure control and iterative recon struction technique were employed. COMPARISON: 09/24/2020 FINDINGS: Minimal dependent atelectasis is present in the lung bases. The heart size is normal. A bonilla ogastric tube is in the stomach. The liver, spleen, pancreas, and adrenal glands are normal. The gall bladder is surgically absent. Nonobstructing stones of the right kidney measure up to 6 mm. The left kidney is unremarkable. There are dilated small bowel loops with air-fluid levels. A transition point is seen in the right mid abdomen beyond which the small bowel is decompressed. There is no free intr aperitoneal gas. No pathologically enlarged abdominal or pelvic lymph nodes are identified. There is mild lumbar spondylosis. IMPRESSION: 1. Small bowel obstruction. 2. Nonobstructing right nephrolithiasis. Reviewed, dictated and finalized at location B.
--- NOTE | ~2021-05-17 | XR_ITS ---
EXAMINATION: XR abdomen/kub 1V DATE: 05/18/2021 10:55 INDICATION: Small bowel obstruction. TECHNIQUE: A supine view of the abdomen on 2 radiographs was obtained. COMPARISON: CT abdomen and pelvis 05/17/2021 FINDINGS: There are multiple dilated loops of small bowel. The colon is decompressed. The nasogastric tube tip is in the stomach. Surgical clips in the right upper quadrant are likely from cholecystecto my. IMPRESSION: 1. Persistently dilated small bowel, consistent with small bowel obstruction. Reviewed, dictated and finalized at location A.
--- NOTE | 2021-05-17 08:59 | PC.NURSE ---
iv therapy nurse present to start difficult iv. aware
[2021-05-17] MEDS: ONDANSETRON INJ 4 MG/2 ML VIAL IV PUSH ×3 (09:15→18:29)
[2021-05-17] MEDS: SODIUM CHLORIDE 0.9% IV 1,000 ML 999 ML IV CONT ×2 (09:15→15:12)
[2021-05-17 09:30] LABS: Basophils Percent Auto 0.4 % (0.2-1.2); Eosinophils Absolute Auto 0.1 K/mm3 (0-0.3); Eosinophils Percent Auto 1.7 % (0-4.4); Hematocrit 41.8 % (42.0-52.0); Hemoglobin 12.5 g/dL (14.0-18.0); Immature Granulocyte Absolute 0.05 K/mm3 (0.00-0.031); Immature Granulocyte Percent A 0.6 % (0-0.5); Lymphocytes Absolute Auto 2.39 K/mm3 (0.9-3.2); Lymphocytes Percent Auto 30.9 % (18.3-44.2); Mean Corpuscular HGB Conc 29.9 g/dl (32-36); Mean Corpuscular Hemoglobin 23.1 pg (26-34); Mean Corpuscular Volume 77.3 fl (80-100); Mean Platelet Volume 9.9 fl (7.4-10.4); Monocytes Absolute Auto 0.6 K/mm3 (0.1-0.6); Monocytes Percent Auto 7.8 % (2.6-8.5); Neutrophils Absolute Auto 4.5 K/mm3 (1.3-6.7); Neutrophils Percent Auto 58.6 % (45.5-73.1); Platelet Count Result 372 k/mm3 (150-375); Red Blood Count 5.41 M/mm3 (4.6-6.20); Red Cell Distribution Width 16.7 % (11.5-14.5); White Blood Count 7.7 K/mm3 (4.5-10.0)
[2021-05-17 09:51] LABS: Alanine Aminotransferase 29 U/L (4-50); Albumin Level 4.6 g/dL (3.5-5.1); Alkaline Phosphatase 86 U/L (38-126); Anion Gap 14 mmol/L (8-16); Aspartate Amino Transferase 25 U/L (17-59); Bilirubin,Total 0.3 mg/dL (0.2-1.3); Blood Urea Nitrogen 17 mg/dL (9-20); Calcium 10.3 mg/dL (8.4-10.2); Carbon Dioxide 26 mmol/L (22-30); Chloride 99 mmol/L (98-107); Estimated CRCL calculation 138 ml/min; Estimated Glomerular Filt Rate > 60; Glucose 138 mg/dL (65-110); Lipase 86 U/L (23-300); Potassium 3.9 mmol/L (3.4-5.0); Sodium 139 mmol/L (137-145)
[2021-05-17] MEDS: fentaNYL CITRATE INJ (*CRX) 100 MCG/2 ML VIAL 75 MCG IV PUSH (10:04)
[2021-05-17 10:06] LABS: Hypochromasia 1+ (NORMAL); Platelet Estimate Adequate (Adequate)
[2021-05-17 10:07] LABS: Poikilocytosis 1+ (NORMAL)
--- NOTE | 2021-05-17 10:38 | ED.GENADULT ---
HPI - General Adult General Chief complaint: Abdominal Pain Stated complaint: Poss bowel obst Time Seen by Provider: 05/17/21 08:35 History of Present Illness HPI narrative: Patient is a 50-year-old male with history of bowel obstruction who presents ER with concerns for recurrent bowel obstruction. Reports abdominal distention and pain worsening since 4 AM.. Has not had flatus or bowel movement since yesterday. Number fevers or chills or sweats. Reports nausea without vomiting. Pain is worse with any type of movement. Related Data Home Medications Medication Instructions Recorded Confirmed Basaglar KwikPen U-100 Insulin 65 unit SUBCUT BID 09/24/20 04/08/21 dapagliflozin [Farxiga] 10 mg PO DAILY 04/08/21 04/08/21 docusate sodium [Colace] 100 mg PO DAILY 04/08/21 04/08/21 isosorbide mononitrate 30 mg PO DAILY 04/08/21 04/08/21 nebivolol [Bystolic] 10 mg PO DAILY 04/08/21 04/08/21 Allergies Allergy/AdvReac Type Severity Reaction Status Date / Time gadobenic acid Allergy Severe Anaphylaxis Verified 05/17/21 08:45 [From CONTRAST-MRI] Iodinated Contrast Media Allergy Severe Anaphylaxis Verified 05/17/21 08:45 iohexol Allergy Severe Anaphylaxis Verified 05/17/21 08:45 [From CONTRAST - CT, XRAY] prochlorperazine AdvReac Severe Agitated Verified 05/17/21 08:45 morphine AdvReac Agitated Verified 05/17/21 08:45 Review of Systems Review of Systems: All systems reviewed & are unremarkable except as noted in HPI and below Constitutional: Constitutional: Denies chills, Denies fever(s) and Denies weakness ENT: Denies nasal congestion and Denies sore throat Cardiovascular: Cardiovascular: Denies chest pain, Denies rapid heart rate and Denies radiating jaw, neck or arm pain Respiratory: Respiratory: Denies cough and Denies dyspnea Gastrointestinal: Gastrointestinal: Reports abdominal pain, Reports bloating, Reports nausea and Denies vomiting Genitourinary: Genitourinary: Denies dysuria and Denies urinary frequency PMFSH Past Medical History Medical History Bacteremia due to methicillin susceptible Staphylococcus aureus (MSSA) Associated with the affected kidney stone March 2014 Bowel obstruction Multiple bowel obstructions with most recent September 2020 Chronic lower back pain Concussion CPAP (continuous positive airway pressure) dependence CPAP pressure of 19 Diabetic gastroparesis Diastolic heart failure Diverticulitis Erectile dysfunction Essential (primary) hypertension Kidney stone Migraines Obstructive sleep apnea RIKI (obstructive sleep apnea) Peripheral neuropathy Primary insomnia Pulmonary embolism left lung following lap jae in July 2018, on Xarelto SOB (shortness of breath) T2DM (type 2 diabetes mellitus) Hemoglobin A1c 9.2 (September 2020) Surgical History Surgical History Hx of cholecystectomy laparoscopic cholecystectomy on July of 2018 Family History Family History Mother Congestive heart failure Diabetes mellitus Social History Social History Social History: Pt designates his Eula as his surrogate decision maker. Full code status. His PCP is Dr. Forde. He lives at home with his and daughter. 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 Gender identity (if verbalized by the patient): Male Spiritual care concerns: Yes Agree to blood products: Yes Exam Narrative: GENERAL: Uncomfortable-appearing, morbidly obese, and in no acute distress. HEAD: Normocephalic, atraumatic. ENT: Mucous membra
[2021-05-17] MEDS: HYDROmorphone HCL INJ (*CRX) 1 MG/ML SYR IV PUSH ×3 (11:15→19:48)
--- NOTE | 2021-05-17 12:31 | PM.IMHP ---
H&P: HPI History of Present Illness Date/Time: 05/17/21 12:31 [facility] Past Medical History Medical History Bacteremia due to methicillin susceptible Staphylococcus aureus (MSSA) Associated with the affected kidney stone March 2014 Bowel obstruction Multiple bowel obstructions with most recent September 2020 Chronic lower back pain Concussion CPAP (continuous positive airway pressure) dependence CPAP pressure of 19 Diabetic gastroparesis Diastolic heart failure Diverticulitis Erectile dysfunction Essential (primary) hypertension Kidney stone Migraines Obstructive sleep apnea RIKI (obstructive sleep apnea) Peripheral neuropathy Primary insomnia Pulmonary embolism left lung following lap jae in July 2018, on Xarelto SOB (shortness of breath) T2DM (type 2 diabetes mellitus) Hemoglobin A1c 9.2 (September 2020) Surgical History Surgical History Hx of cholecystectomy laparoscopic cholecystectomy on July of 2018 Family History Family History Mother Congestive heart failure Diabetes mellitus Social History Social History (Updated 03/29/21 @ 14:11 by Barbara Horvath) Social History: Pt designates his Eula as his surrogate decision maker. Full code status. His PCP is Dr. Forde. He lives at home with his and daughter. 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 Gender identity (if verbalized by the patient): Male Spiritual care concerns: Yes Agree to blood products: Yes Meds Home Medications and Allergies Home Medications Medication Instructions Recorded Confirmed Type Basaglar KwikPen U-100 Insulin 65 unit SUBCUT BID 09/24/20 04/08/21 History insulin aspart U-100 100 unit/mL See Rx Instructions .ROUTE 11/05/20 04/08/21 Rx subcutaneous solution .COMPLEX #50 ml pen needle, diabetic 29 gauge x #100 ea 11/05/20 01/01/21 Rx 1/2 amlodipine 5 mg tablet 5 mg PO HS #90 tablet 12/03/20 04/08/21 Rx blood sugar diagnostic #100 ea 12/04/20 01/01/21 Rx insulin syringe-needle U-100 0.5 #100 ea 02/04/21 Rx mL 29 gauge x 1/2 atorvastatin 40 mg tablet 40 mg PO HS #30 tablet 04/05/21 04/08/21 Rx spironolactone 25 mg tablet 25 mg PO QAM #30 tablet 04/05/21 04/08/21 Rx dapagliflozin [Farxiga] 10 mg PO DAILY 04/08/21 04/08/21 History docusate sodium [Colace] 100 mg PO DAILY 04/08/21 04/08/21 History isosorbide mononitrate 30 mg PO DAILY 04/08/21 04/08/21 History nebivolol [Bystolic] 10 mg PO DAILY 04/08/21 04/08/21 History gabapentin 300 mg capsule See Rx Instructions .ROUTE 04/13/21 Rx .COMPLEX #270 capsule rivaroxaban 20 mg tablet 20 mg PO HS #30 tablet 04/13/21 Rx sitagliptin 100 mg tablet 100 mg PO DAILY #30 tablet 04/13/21 Rx hydralazine 50 mg tablet 75 mg PO TID #180 tablet 05/05/21 Rx irbesartan 150 1 tablet PO HS #90 tablet 05/17/21 Rx mg-hydrochlorothiazide 12.5 mg tablet Allergies Allergy/AdvReac Type Severity Reaction Status Date / Time gadobenic acid Allergy Severe Anaphylaxis Verified 05/17/21 08:45 [From CONTRAST-MRI] Iodinated Contrast Media Allergy Severe Anaphylaxis Verified 05/17/21 08:45 iohexol Allergy Severe Anaphylaxis Verified 05/17/21 08:45 [From CONTRAST - CT, XRAY] prochlorperazine AdvReac Severe Agitated Verified 05/17/21 08:45 morphine AdvReac Agitated Verified 05/17/21 08:45 Vital Signs Vital Signs - 24 hr 05/17/21 08:29 05/17/21 10:33 05/17/21 12:01 Temperature 37.3 C Pulse Rate 87 78 78 Respiratory Rate 17 12 18 Blood Pressure 149/85 H 122/59 L 123/74 Pulse Oximetry 97 95 96 H&P: Results Labs Labs: Short CBC
--- NOTE | 2021-05-17 16:15 | PM.CNGS ---
Assessment and Plan Assessment and plan (1) Small bowel obstruction: Code(s): K56.609 - Unspecified intestinal obstruction, unspecified as to partial versus complete obstruction Status: Resolved Assessment and Plan: CT findings suggest recurrent small bowel obstruction, which was discussed with the patient in detail. Due to his multiple co-morbidities and morbid obesity, the patient is a very high risk surgical candidate. We recommended transfer to a tertiary care facility from the ER for this reason in case he failed conservative management and required surgery. He reportedly was accepted to a bariatric bed at [facility], but there are no beds available at this time. While awaiting bed placement, we would recommend to initiate conservative treatment with NG tube decompression, bowel rest, and analgesics. Will monitor the patient with serial abdominal exams and imaging. He has been successfully treated conservatively in the past, but if this does not resolve with such, then he would require exploratory surgery. (2) Morbid obesity with BMI of 60.0-69.9, adult: Code(s): E66.01 - Morbid (severe) obesity due to excess calories; Z68.44 - Body mass index [BMI] 60.0-69.9, adult Status: Chronic Assessment and Plan: Continues to have weight gain with at least 50 pound weight gain in the past 6 months. The patient feels that it may even be more. Discussed the importance of weight loss and the risks of surgery associated with morbid obesity. See plan above. (3) Diabetic gastroparesis: Code(s): E11.43 - Type 2 diabetes mellitus with diabetic autonomic (poly)neuropathy; K31.84 - Gastroparesis Status: Chronic (4) T2DM (type 2 diabetes mellitus): Code(s): E11.9 - Type 2 diabetes mellitus without complications Status: Chronic (5) Chronic anticoagulation: Code(s): Z79.01 - terminal make up operator (current) use of anticoagulants Status: Chronic Assessment and Plan: Takes Xarelto for hx of PE. Hold Xarelto. Could use prophylactic Lovenox, management per Hospitalist. (6) History of pulmonary embolism: Code(s): Z86.711 - Personal history of pulmonary embolism Status: Chronic (7) Long-term insulin use: Code(s): Z79.4 - custodial (current) use of insulin Status: Chronic (8) RIKI (obstructive sleep apnea): Code(s): G47.33 - Obstructive sleep apnea (adult) (pediatric) Status: Chronic (9) CHF (congestive heart failure): Qualifiers: Heart failure type: unspecified Heart failure chronicity: acute Qualified Code(s): I50.9 - Heart failure, unspecified Code(s): I50.9 - Heart failure, unspecified Status: Acute Additional Plan I have discussed the patient's case and plan of care with Dr. Seals. Thank you for allowing us to see the patient in consultation and we will continue to follow along with you. History of Present Illness Consult details Consult date: 05/17/21 Reason for consult: other (Small bowel obstruction) Requesting physician: Mehdi Rod MD Narrative: This is a 50-year-old morbidly obese male who came to the emergency room early this morning with abdominal pain. He had a sudden onset of generalized abdominal pain that started around 2:00 am this morning, which woke him up from sleep. He went to bed otherwise in his usual state of health. He also had associated nausea, vomiting, and bloating. He then presented to the ER for evaluation. CT scan of the abdomen and pelvis showed evidence of a small bowel obstruction. He has a history of small bowel obstructions in the past that have successfully been treated conservatively. Last time this occurred was September of 2020 when he was found to have a partial small bowel obstruction. Our service has been consulted from the ED provider for the small bowel obstruction. It was recommended that he be transferred to a tertiary care facility due to his morbid obesity and being a ve
--- NOTE | 2021-05-17 17:45 | PC.NURSE ---
This patient, Jerome Olson, was admitted to 2 Medical Room 260-. Patient/family oriented to hospital policies and general routines including ID bracelet, bed and alarms, visiting hours, pain management, procedures, bathroom and other care routines, personal items, smoking policy, room service/diet, and visiting hours. Information on how to activate the Rapid Response Team has been discussed. Patient/Family are encouraged to report perceived risks to care and to ask questions if they do not understand what they are told or what they should do.
[2021-05-17 18:16] LABS: Glucose Point of Care 88 mg/dl (65-105)
--- NOTE | 2021-05-17 19:34 | PM.IMHP ---
H&P: HPI History of Present Illness Date/Time: 05/17/21 19:34 Chief Complaint: NAUSEA AND VOMITING Narrative: THIS IS A 50-YEAR-OLD MALE WITH PAST MEDICAL HISTORY SIGNIFICANT FOR MORBID OBESITY, OBSTRUCTIVE SLEEP APNEA ON CPAP AT NIGHTTIME, RECURRENT SMALL-BOWEL OBSTRUCTION, T2 DM INSULIN DEPENDENT, HYPERTENSION, CONGESTIVE HEART FAILURE. PATIENT PRESENTED TO EMERGENCY ROOM DUE TO INTRACTABLE NAUSEA VOMITING ABDOMINAL PAIN THAT STARTED ROUGHLY AT AROUND 2:00 A.M. AND E WAS ONGOING NON RESOLVING. PATIENT STATES THAT HE GETS SMALL BOWEL OBSTRUCTION FOR THE PAST 5 YEARS AT LEAST ONCE A YEAR AND HE HAS BEEN TREATED BEFORE FOR THE SAME REASON AT THIS FACILITY HE HAS ALWAYS BEEN ABLE TO BE MEDICALLY MANAGED. HE DENIES ANY FEVERS ANY RIGORS ANY CHILLS ANY SHORTNESS OF BREATH COUGH SPUTUM PRODUCTION. HE HAS HAD A ROUGHLY 50 LB WEIGHT GAIN IN THE LAST 6 MONTHS OR SO. AT THE TIME OF MY VISIT PATIENT WAS WEARING HIS CPAP. PRELIMINARY WORKUP WAS SIGNIFICANT FOR CT OF ABDOMEN AND PELVIS SMALL-BOWEL OBSTRUCTION. Review of Systems Review of Systems: NAUSEA AND VOMITING AND ABDOMINAL PAIN Constitutional: Constitutional: Denies chills, Denies fatigue, Denies fever(s) and Denies malaise Eyes: Eyes: Denies change in vision ENT: Denies dysphagia, Denies dizziness, Denies nasal congestion, Denies nasal discharge and Denies nasal obstruction Cardiovascular: Cardiovascular: Denies irregular heart rhythm, Denies claudication, Denies lightheadedness, Denies radiating jaw, neck or arm pain, Denies palpitations and Denies dyspnea Respiratory: Respiratory: Denies cough and Denies dyspnea Gastrointestinal: Gastrointestinal: Reports abdominal pain, Reports nausea and Reports vomiting Genitourinary: Genitourinary: Denies no additional male genitourinary complaints Musculoskeletal: Musculoskeletal: Reports back pain Integumentary/Breasts: Skin/Breast: Denies rash Neurologic: Reports system reviewed and no additional complaints, except as documented Psychiatric: Psychiatric: Reports no additional psychiatric complaints Endocrine: Endocrine: Reports no additional endocrine complaints Hematologic/Lymphatic: Hematologic/Lymphatic: Reports no additional hematologic/lymphatic complaints Allergic/Immunologic: Allergic/Immunologic: Reports no additional allergic/immunologic complaints PMFSH Past Medical History Medical History Bacteremia due to methicillin susceptible Staphylococcus aureus (MSSA) Associated with the affected kidney stone March 2014 Bowel obstruction Multiple bowel obstructions with most recent September 2020 Chronic lower back pain Concussion CPAP (continuous positive airway pressure) dependence CPAP pressure of 19 Diabetic gastroparesis Diastolic heart failure Diverticulitis Erectile dysfunction Essential (primary) hypertension Kidney stone Migraines Obstructive sleep apnea RIKI (obstructive sleep apnea) Peripheral neuropathy Primary insomnia Pulmonary embolism left lung following lap jae in July 2018, on Xarelto SOB (shortness of breath) T2DM (type 2 diabetes mellitus) Hemoglobin A1c 9.2 (September 2020) Surgical History Surgical History Hx of cholecystectomy laparoscopic cholecystectomy on July of 2018 Family History Family History Mother Congestive heart failure Diabetes mellitus Social History Social History Social History: Pt designates his Eula as his surrogate decision maker. Full code status. His PCP is Dr. Forde. He lives at home with his and daughter. Smoking status: Never smoker Second hand tobacco smoke exposure: No Alcohol intake: never Substance use: never Substance use type: does not use Additional occupation/education comments: He works as the
[2021-05-17] MEDS: DEXTROSE 5%/0.45% SOD CHL 1,000 ML 75 ML IV CONT (19:41)
[2021-05-18 06:00] VITALS: BP 144/74; PULSE 73; RESP 20; TEMP 36.6; O2SAT 97
[2021-05-18] MEDS: DEXTROSE 5%/0.45% SOD CHL 1,000 ML 75 ML IV CONT (08:04)
[2021-05-18] MEDS: HYDROmorphone HCL INJ (*CRX) 1 MG/ML SYR IV PUSH (08:04)
[2021-05-18 08:12] LABS: Glucose Point of Care 148 mg/dl (65-105)
[2021-05-18 08:57] LABS: Anion Gap 8 mmol/L (8-16); Blood Urea Nitrogen 16 mg/dL (9-20); Calcium 8.8 mg/dL (8.4-10.2); Carbon Dioxide 26 mmol/L (22-30); Chloride 102 mmol/L (98-107); Estimated CRCL calculation 165 ml/min; Estimated Glomerular Filt Rate > 60; Glucose 150 mg/dL (65-110); Potassium 4.2 mmol/L (3.4-5.0); Sodium 136 mmol/L (137-145)
--- NOTE | 2021-05-18 09:59 | PM.PNGS ---
Progress Note: A&P Assessment and Plan (1) Small bowel obstruction: Code(s): K56.609 - Unspecified intestinal obstruction, unspecified as to partial versus complete obstruction Status: Resolved Assessment and Plan: Showing signs of improvement. Awaiting KUB this morning. Continue NG tube decompression and bowel rest. Encouraged increasing activity and trying to ambulate if tolerated. Awaiting bed placement at [facility], accepted by Bariatric Surgeon. (2) Morbid obesity with BMI of 60.0-69.9, adult: Code(s): E66.01 - Morbid (severe) obesity due to excess calories; Z68.44 - Body mass index [BMI] 60.0-69.9, adult Status: Chronic (3) Diabetic gastroparesis: Code(s): E11.43 - Type 2 diabetes mellitus with diabetic autonomic (poly)neuropathy; K31.84 - Gastroparesis Status: Chronic (4) T2DM (type 2 diabetes mellitus): Code(s): E11.9 - Type 2 diabetes mellitus without complications Status: Chronic (5) Chronic anticoagulation: Code(s): Z79.01 - intermediate (current) use of anticoagulants Status: Chronic Assessment and Plan: Xarelto on hold. (6) History of pulmonary embolism: Code(s): Z86.711 - Personal history of pulmonary embolism Status: Chronic (7) Long-term insulin use: Code(s): Z79.4 - intermediate (current) use of insulin Status: Chronic (8) RIKI (obstructive sleep apnea): Code(s): G47.33 - Obstructive sleep apnea (adult) (pediatric) Status: Chronic (9) CHF (congestive heart failure): Qualifiers: Heart failure type: unspecified Heart failure chronicity: acute Qualified Code(s): I50.9 - Heart failure, unspecified Code(s): I50.9 - Heart failure, unspecified Status: Acute Additional Plan I have discussed the plan of care with Dr. Seals. Subjective Subjective Date/Time Seen: 05/18/21 09:59 Patient reports: no new complaints, feels better, pain is less, flatus and no bowel movement Interval history: Patient seen this morning and feeling much better. He reports that his bloating and abdominal pain have improved. He denies any more nausea. +flatus. Per the nurse, about 500 cc out of NG tube overnight. Review of Systems Review of Systems: All systems reviewed & are unremarkable except as noted in HPI and below Exam Const: General: no acute distress and awake Nutritional Appearance: obese morbidly obese GI: Inspection: obesity (morbidly obese) GI Palp: Yes Soft to palpation (seems less distended and softer today), Yes Tenderness to palpation present (GI) (diffusely tender), No Guarding due to palpation present (GI) and No Rebound tenderness present Auscultation: Hypoactive bowel sounds present (more bowel sounds today) Neuro: General: moves all extremities and no focal motor deficits Extrem: General: no clubbing, cyanosis or edema Psych: Mental Status: mental status grossly normal Objective Data Vital Signs Vital Signs: Vital Signs - 24 hr 05/17/21 10:33 05/17/21 11:00 05/17/21 11:30 Temperature 98.8 F Pulse Rate 78 78 80 Respiratory Rate 12 18 18 Blood Pressure 122/59 L 142/74 H 132/68 Pulse Oximetry 95 97 96 05/17/21 12:01 05/17/21 13:23 05/17/21 14:00 Temperature Pulse Rate 78 78 77 Respiratory Rate 18 16 18 Blood Pressure 123/74 129/69 137/67 Pulse Oximetry 96 96 98 05/17/21 14:32 05/17/21 17:20 05/17/21 18:45 Temperature 98.7 F Pulse Rate 77 84 74 Respiratory Rate 18 18 Blood Pressure 132/66 132/65 155/49 H Pulse Oximetry 95 99 97 05/17/21 20:00 05/17/21 21:06 05/18/21 06:00 Temperature 98.5 F 97.9 F Pulse Rate 74 76 73 Respiratory Rate 18 18 20 Blood Pressure 137/54 L 144/74 H Pulse Oximetry 97 96 97 Intake/Output Intake/Output: Intake & Output 05/15/21 05/16/21 05/17/21 05/18/21 23:59 23:59 23:59 23:59 Intake Total 1000 1000 Output Total 100 800 Balance 900 200 Meds/Results Medications: Active Medications Ge
[2021-05-18] MEDS: FUROSEMIDE INJ 40 MG/4 ML VIAL 20 MG IV PUSH (11:01)
[2021-05-18 12:03] LABS: Glucose Point of Care 148 mg/dl (65-105)
[2021-05-18] MEDS: ONDANSETRON INJ 4 MG/2 ML VIAL IV PUSH (12:51)
[2021-05-18 14:00] VITALS: BP 145/66; PULSE 74; RESP 18; TEMP 36.3; O2SAT 99
[2021-05-18] MEDS: MAGNESIUM HYDROXIDE SUSP 30 ML UDC 60 ML FEED TUBE (14:21)
--- NOTE | 2021-05-18 15:37 | PM.IMPN ---
Progress Note: A&P Assessment and Plan (1) Small bowel obstruction: Code(s): K56.609 - Unspecified intestinal obstruction, unspecified as to partial versus complete obstruction Status: Acute Assessment and Plan: NPO Continue with NG to LIWS GS following, recommendations Supportive care KUB-->Persistently dilated small bowel, consistent with small bowel obstruction Pt to transfer to [facility], accepted, bed pending (2) Obstructive sleep apnea: Code(s): G47.33 - Obstructive sleep apnea (adult) (pediatric) Status: Acute Assessment and Plan: Continue CPAP at HS (3) Obesity hypoventilation syndrome: Code(s): E66.2 - Morbid (severe) obesity with alveolar hypoventilation Status: Acute Assessment and Plan: Stable (4) RIKI (obstructive sleep apnea): Code(s): G47.33 - Obstructive sleep apnea (adult) (pediatric) Status: Chronic Assessment and Plan: As above (5) Diastolic heart failure: Code(s): I50.30 - Unspecified diastolic (congestive) heart failure Status: Acute Assessment and Plan: Stable No acute exacerbation Monitor I/O Resume home meds when appropriate (6) Morbid obesity with BMI of 60.0-69.9, adult: Code(s): E66.01 - Morbid (severe) obesity due to excess calories; Z68.44 - Body mass index [BMI] 60.0-69.9, adult Status: Chronic Assessment and Plan: LIFESTYLE AND DIET MODIFICATION encouraged (7) Acute generalized abdominal pain: Code(s): R10.84 - Generalized abdominal pain Status: Acute Assessment and Plan: Improved LIKELY 2/[address] OF ABDOMEN AND PELVIS REVIEWED Supportive care Subjective Date/time seen: 05/18/21 15:37 Interval history: pt seen and evaluated; labs, diagnostic reports and consult notes reviewed; no acute events overnight; overall he states he feels better; he does endorse some SOB Review of Systems Review of Systems: All systems reviewed & are unremarkable except as noted in HPI and below Exam Const: General: no acute distress, alert and awake Orientation/consciousness: patient oriented x3 HENMT: Head: normocephalic and atraumatic Ears: hearing grossly normal bilaterally and external ears normal Face and sinus: face symmetric Mouth: Yes Normal oral and palatal mucosa present Eyes: Pupils: Equal, round and reactive pupils present EOM: EOMs intact bilaterally Neck: Neck: full ROM, trachea midline and no JVD Thyroid: thyroid normal Chest: Chest palpation & inspection: normal inspection of the chest Resp: Effort & Inspection: normal respiratory effort Auscultation: clear to auscultation bilaterally Cardio: Jugular venous distension: no JVD Rate: regular rate Rhythm: regular rhythm Heart sounds: S1 normal heart sound present and S2 normal heart sound present GI: Inspection: normal to inspection Auscultation: Hypoactive bowel sounds present : General: Yes no CVA tenderness Back/Spine/Pelvis: Back: no CVA tenderness Skin: General skin exam: normal color Rashes: no rashes Neuro: General: patient oriented x3 and CN's II-XI intact bilaterally Cranial nerves: Yes Equal, round and reactive pupils present Speech: normal speech Psych: Appearance: grossly normal Affect: normal affect Judgement: Good judgement present (Psych) Objective Data Vital Signs Vital Signs: Vital Signs - 24 hr 05/17/21 17:20 05/17/21 18:45 05/17/21 20:00 Temperature 37.1 C Pulse Rate 84 74 74 Respiratory Rate 18 18 18 Blood Pressure 132/65 155/49 H Pulse Oximetry 99 97 97 05/17/21 21:06 05/18/21 06:00 05/18/21 14:00 Temperature 36.9 C 36.6 C 36.3 C L Pulse Rate 76 73 74 Respiratory Rate 18 20 18 Blood Pressure 137/54 L 144/74 H 145/66 H Pulse Oximetry 96 97 99 Intake/Output Intake/Output: Intake & Output 05/15/21 05/16/21 05/17/21 05/18/21 23:59 23:59 23:59 23:59 Intake Total 1000 1000 Output Total 100 1950 Balance 900 -95
[2021-05-18 17:51] LABS: Glucose Point of Care 158 mg/dl (65-105)
[2021-05-18 20:00] VITALS: PULSE 73; RESP 20; O2SAT 97
[2021-05-18 20:43] VITALS: BP 141/65; PULSE 73; RESP 20; TEMP 36; O2SAT 97
[2021-05-18 20:53] LABS: Glucose Point of Care 149 mg/dl (65-105)
[2021-05-19] MEDS: HYDROmorphone HCL INJ (*CRX) 1 MG/ML SYR IV PUSH (00:22)
[2021-05-19] MEDS: DEXTROSE 5%/0.45% SOD CHL 1,000 ML 75 ML IV CONT (00:22)
[2021-05-19] MEDS: ONDANSETRON INJ 4 MG/2 ML VIAL IV PUSH (00:22)
[2021-05-19 00:31] LABS: Glucose Point of Care 137 mg/dl (65-105)
[2021-05-19 05:03] VITALS: BP 165/68; PULSE 70; RESP 20; TEMP 36.6; O2SAT 95
[2021-05-19 05:44] LABS: Basophils Percent Auto 0.3 % (0.2-1.2); Eosinophils Absolute Auto 0.2 K/mm3 (0-0.3); Eosinophils Percent Auto 2.6 % (0-4.4); Hematocrit 37.5 % (42.0-52.0); Immature Granulocyte Absolute 0.02 K/mm3 (0.00-0.031); Immature Granulocyte Percent A 0.3 % (0-0.5); Lymphocytes Absolute Auto 1.76 K/mm3 (0.9-3.2); Lymphocytes Percent Auto 28.9 % (18.3-44.2); Mean Corpuscular HGB Conc 29.3 g/dl (32-36); Mean Corpuscular Hemoglobin 23.5 pg (26-34); Mean Platelet Volume 9.7 fl (7.4-10.4); Monocytes Absolute Auto 0.6 K/mm3 (0.1-0.6); Monocytes Percent Auto 9.2 % (2.6-8.5); Neutrophils Absolute Auto 3.6 K/mm3 (1.3-6.7); Neutrophils Percent Auto 58.7 % (45.5-73.1); Platelet Count Result 310 k/mm3 (150-375); Red Blood Count 4.69 M/mm3 (4.6-6.20); Red Cell Distribution Width 16.8 % (11.5-14.5); White Blood Count 6.1 K/mm3 (4.5-10.0)
[2021-05-19 05:53] LABS: Anion Gap 7 mmol/L (8-16); Blood Urea Nitrogen 16 mg/dL (9-20); Calcium 8.6 mg/dL (8.4-10.2); Carbon Dioxide 26 mmol/L (22-30); Chloride 104 mmol/L (98-107); Estimated CRCL calculation 185 ml/min; Estimated Glomerular Filt Rate > 60; Glucose 181 mg/dL (65-110); Potassium 4.2 mmol/L (3.4-5.0); Sodium 137 mmol/L (137-145)
[2021-05-19 06:41] LABS: Glucose Point of Care 183 mg/dl (65-105)
--- NOTE | 2021-05-19 15:13 | PM.TDS ---
Transfer Discharge Sum: Prov Provider Date of admission: 05/17/21 16:56 Primary care physician: Ramone Forde MD Admitting clinician: Kings Reyez DO Consults: 05/17/21 15:07 Consult to Physician Routine Comment: Per notes Shari Hardy was notified (,[place]) Consulting Provider: Devante Seals technical research scientist/MD group to consult: donn Reason for consultation: sbo Has provider been notified: Yes DS: Admitting Diagnosis Admitting Diagnosis NAUSEA AND VOMITING Transfer Discharge Sum: Med Medications Active and Home Medications: Home Medications Basaglar KwikPen U-100 Insulin 65 unit SUBCUT BID 09/24/20 [History Confirmed 05/17/21] insulin aspart U-100 100 unit/mL subcutaneous solution See Rx Instructions .ROUTE .COMPLEX #50 ml 11/05/20 [Rx Confirmed 05/17/21] pen needle, diabetic 29 gauge x 1/2 #100 ea 11/05/20 [Rx Confirmed 05/17/21] amlodipine 5 mg tablet 5 mg PO HS #90 tablet 12/03/20 [Rx Confirmed 05/17/21] blood sugar diagnostic #100 ea 12/04/20 [Rx Confirmed 05/17/21] insulin syringe-needle U-100 0.5 mL 29 gauge x 1/2 #100 ea 02/04/21 [Rx Confirmed 05/17/21] atorvastatin 40 mg tablet 40 mg PO HS #30 tablet 04/05/21 [Rx Confirmed 05/17/21] spironolactone 25 mg tablet 25 mg PO QAM #30 tablet 04/05/21 [Rx Confirmed 05/17/21] dapagliflozin [Farxiga] 10 mg PO DAILY 04/08/21 [History Confirmed 05/17/21] docusate sodium [Colace] 100 mg PO DAILY 04/08/21 [History Confirmed 05/17/21] isosorbide mononitrate 30 mg PO DAILY 04/08/21 [History Confirmed 05/17/21] nebivolol [Bystolic] 10 mg PO DAILY 04/08/21 [History Confirmed 05/17/21] gabapentin 300 mg capsule See Rx Instructions .ROUTE .COMPLEX #270 capsule 04/13/21 [Rx Confirmed 05/17/21] rivaroxaban 20 mg tablet 20 mg PO HS #30 tablet 04/13/21 [Rx Confirmed 05/17/21] sitagliptin 100 mg tablet 100 mg PO DAILY #30 tablet 04/13/21 [Rx Confirmed 05/17/21] hydralazine 50 mg tablet 75 mg PO TID #180 tablet 05/05/21 [Rx Confirmed 05/17/21] irbesartan 150 mg-hydrochlorothiazide 12.5 mg tablet 1 tablet PO HS #90 tablet 05/17/21 [Rx Confirmed 05/17/21] Transfer Discharge Sum: Hosp Hospital Course Hospital course: Jerome Olson is a 50 year old man with a PMH significant for IDDM type II, HTN, CHG, morbid obesity, RIKI and recurrent SBO. He presented to the ED with intractable nausea, vomiting and abdominal pain. He has been medically managed for the past 5 years for these SBO with the last occurrence being 09/2020. CT of A/P revealed SBO. was consulted by the ED and recommended transfer to a tertiary care facility due to underlying morbid obesity. Initially [facility] accepted the patient, however, no beds were available. [facility] now has an available bed and the patient and he is stable for transfer. Time Spent with Patient Time attestation: Total time spent providing and/or coordinating transfer services: 40 Total time spent: Greater than 30 minutes
== END 2021-05-19 08:45 | disposition short-term general hospital (02) | DRG 389 ==
LOC: ANHED 08:41 → ANH2MED 16:57
PROVIDERS: Nurse Practitioner Adult Health; Admitting Provider Student in an Organized Health Care Education/Training Program; Emergency Provider Emergency Medicine; PCP Family Medicine; Visit Provider Internal Medicine
DX: K56.609 Unspecified intestinal obstruction, unspecified as to partial versus complete obstruction (principal); E66.2 Morbid (severe) obesity with alveolar hypoventilation; I50.32 Chronic diastolic (congestive) heart failure; Z68.44 Body mass index [BMI] 60.0-69.9, adult; I11.0 Hypertensive heart disease with heart failure; E11.42 Type 2 diabetes mellitus with diabetic polyneuropathy; E11.43 Type 2 diabetes mellitus with diabetic autonomic (poly)neuropathy; K31.84 Gastroparesis; Z79.01 Long term (current) use of anticoagulants; Z86.711 Personal history of pulmonary embolism; Z79.4 Long term (current) use of insulin; Z90.49 Acquired absence of other specified parts of digestive tract
CPT/HCPCS: 36415; 71045; 74018; 74176; 80048; 80053; 82948; 83690; 85025; 96361; 96374; 96375; 96376; 99285; A9270; G0378; J0131; J1170; J1940; J2405; J3010; J7030

== ENCOUNTER 2021-06-21 18:00 | Outpatient (RCR) | payer SELFPAY ==
[2021-04-08 12:02] VITALS: BP 140/77; PULSE 77; O2SAT 97
[2021-04-08 12:30] VITALS: PULSE 77
--- NOTE | 2021-04-22 18:21 | PCCPR ---
Patient's called to inform us that Jerome would not be attending today's session because he didn't feel well. She stated his blood glucose levels were between 97-115 yesterday which is very low for him and that when this happens it makes him feel very tired for a day or two. She stated that he'll be back on Monday.
--- NOTE | 2021-05-03 18:29 | PCCPR ---
Addendum entered by Elzbieta Fraser RN 05/10/21 18:28: called carlos states Jerome still is having trouble walking and getting around. She did ask if we offer aquatic therapy explained that is available in out pt PT. Original Note: Patient's called to let us know Jerome will be absent today due to some leg and hand edema. She plans on contacting his doctor today and will let us know if he won't be attending his Monday session here.
--- NOTE | 2021-05-18 13:26 | PCCPR ---
currently inpt for small bowl obstruction
--- NOTE | 2021-05-26 19:02 | PCCPR ---
Continued absence Spoke with Jerome purcell just released from [facility] yesterday. He was at [facility] then transferred to [facility] for a partial bowel obstruction. States he will talk with his PCP about returning to Cardiac rehab.
--- NOTE | 2021-06-07 18:22 | PCCPR ---
Addendum entered by Shelly Mcgill RN 06/17/21 09:33: Spoke with Jerome states he was supposed to have an apt with his Electro Optical Engineer on [facility] Original Note: Continued absence: Spoke with Jerome gonzalez regarding his return. He would like to return but was told by his primary that he would need to have a release from the rpg developer. Jerome has an appointment with the rpg developer but was driving and could not remember the date. I asked Jerome to keep us up to date regarding his appointment so that we can get a release.
--- NOTE | 2021-06-17 16:02 | PCCPR ---
Addendum entered by Shelly Mcgill RN 06/17/21 16:22: Eula returned call stating that Jerome would like to return Monday. Original Note: Spoke with Jerome's , Eula, today regarding his absences and plan for return. Jerome was given the ok to continue exercise from the electro mechanical technician as long as he tolerated exercise without significant shortness of breath. Jerome's stated that his biggest obstacle right now is his inability to tolerate activity without getting severely short of breath or having pain due to neuropathy. She inquired about lower impact workouts but he was using the nustep on the lowest resistance setting. I explained to her that his biggest struggle was walking in and out of our facility, which could not be changed. I told her that we could try intervals on the nustep instead of continual time on the machine. She said that she would relay the message to Jerome and that they would think about returning. I ask that they give a call as soon as possible as we are holding his spot in that class.
--- NOTE | 2021-06-23 16:21 | PCCPR ---
Jerome called out for carlos, he stated that he was having trouble keeping his blood sugar up today and that his blood pressure has been elevated. He also discussed only coming twice a week due to extreme fatigue and recovery after exercising two days in a row. I
--- NOTE | 2021-06-28 16:51 | PCCPR ---
Addendum entered by Elzbieta Fraser RN 07/05/21 16:24: Jerome's called state he is having severe chest pain associated with SOB and not sure what to do for him. States he was told per the Manager Field Services and the Wind Tunnel Technician they could not do anything for him until he looses weight. Advised to take to ED if they needed but to call around to hospitals in the [facility] such as [facility] that do bariatric patients. Also discussed placing him on hold while they find out what the cause of his symptoms are. Explained his time slot is not guaranteed and will call every couple of week to check his status/progress. Original Note: Jerome's called and spoke with Shandra today, she stated that he was experiencing shortness of breath and chest pressure. Jerome's encouraged to notify their physician or go the emergency room and not to come to rehab.
--- NOTE | 2021-09-30 16:49 | PCCPR ---
Addendum entered by Radha Carmona 11/09/21 10:18: LM letting pt know we are discharging him due to not attending consistently since April 2021. 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 States she would like to resume after the of the year.Explained it is possible we may need a new referral and would let him know when he calls us with his upcoming apt date.
== END 2021-06-21 23:59 | disposition home or self-care (01) ==
LOC: ANHCPREHAB 18:00
PROVIDERS: PCP Family Medicine; Visit Provider Internal Medicine Cardiovascular Disease
DX: I50.9 Heart failure, unspecified (principal)
CPT/HCPCS: 93798; 99199

== ENCOUNTER 2022-03-29 10:22 | Emergency (ER) | payer OTHER, SELFPAY ==
--- NOTE | ~2022-03-29 | CT_ITS ---
EXAMINATION: CT abdomen pelvis wo con DATE: 03/29/2022 14:14 INDICATION: Testicular pain. TECHNIQUE: Computed tomography (CT) of the abdomen and pelvis was performed without intravenous contr ast. Automated exposure control and iterative reconstruction technique were employed. The dose-length product was 2112.42 mGy-cm. COMPARISON: CT abdomen and pelvis 05/17/2021 FINDINGS: The visualized portions of the lung bases are clear without pneumonia or pleural effusion. The heart size is normal. No pericardial effusion. There is diffuse hepatic steatosis. There are adair ges of cholecystectomy. The pancreas and adrenal glands are normal. There are 3 mm and 5 mm stones in right kidney. Left kidney is normal. There are no dilated loops of bowel. The appendix is not visual ized. There is mild bilateral inguinal lymphadenopathy. A right inguinal node measures 3.2 x 2.0 cm. There is no free intraperitoneal fluid. There is skin thickening in the scrotum. There is mild thorac olumbar spondylosis. IMPRESSION: 1. Mild bilateral inguinal lymphadenopathy, likely reactive. Reviewed, dictated and finalized at location A.
--- NOTE | ~2022-03-29 | US_ITS ---
EXAMINATION: US scrotum doppler DATE: 03/29/2022 11:58 INDICATION: Testicular pain TECHNIQUE: Testicular sonogram utilizing grayscale and Doppler COMPARISON: 12/27/2021 FINDINGS: The right testis measures 3.9 x 1.9 x 2.9 cm. The left testis measures 4.1 x 2.3 x 2.8 cm. There is normal vascular flow to both testes. The right epididymis contains a 3 mm cyst or spermatoce le. The left epididymis is normal with normal vascular flow. There is no varicocele or hydrocele. IMPRESSION: 1. No sonographic correlate for the patient's symptoms. Reviewed, dictated and finalized at location A.
[2022-03-29 10:25] VITALS: BP 189/79; PULSE 80; RESP 16; TEMP 36.6; O2SAT 99
--- NOTE | 2022-03-29 10:35 | PC.NURSE ---
pt refusing to take off underwear. states we can evaluate problem without him taking them off. friend at bedside talking on phone to someone about pt. difficult to assess pt.
[2022-03-29] MEDS: HYDROcodone/acetaminophen (*CRX) 5-325 MG TABLET 2 TAB PO (11:22)
--- NOTE | 2022-03-29 12:19 | PC.NURSE ---
Pt told grinder and honer operator automatic that they would like additional pain medications prior to lab. states patient has had increased blood pressure and has gel on his testicles from office procedure. Offered to cleanse , states it would be too painful. Primary RN aware of requests/concerns.
--- NOTE | 2022-03-29 12:19 | PC.NURSE ---
Pt and pts family request this RN. Per pt he is still in pain and he has no relief of s/s. States they manhandled my stuff and didn't numb it . icu clerk and ERP aware.
--- NOTE | 2022-03-29 12:39 | PC.NURSE ---
pt states he did not refuse labs. family stated that she asked them to wait cause pt was having high blood pressure episode due to pain . pt and family argumentative. continues to c/o pain
[2022-03-29 12:44] LABS: Basophils Percent Auto 0.6 % (0.2-1.2); Eosinophils Absolute Auto 0.2 K/mm3 (0-0.3); Eosinophils Percent Auto 2.7 % (0-4.4); Hematocrit 40.4 % (42.0-52.0); Hemoglobin 11.9 g/dL (14.0-18.0); Immature Granulocyte Absolute 0.01 K/mm3 (0.00-0.031); Immature Granulocyte Percent A 0.1 % (0-0.5); Lymphocytes Absolute Auto 2.19 K/mm3 (0.9-3.2); Lymphocytes Percent Auto 31.1 % (18.3-44.2); Mean Corpuscular HGB Conc 29.5 g/dl (32-36); Mean Corpuscular Volume 78.1 fl (80-100); Mean Platelet Volume 9.4 fl (7.4-10.4); Monocytes Absolute Auto 0.6 K/mm3 (0.1-0.6); Monocytes Percent Auto 8.9 % (2.6-8.5); Neutrophils Percent Auto 56.6 % (45.5-73.1); Platelet Count Result 316 k/mm3 (150-375); Red Blood Count 5.17 M/mm3 (4.6-6.20); Red Cell Distribution Width 18.6 % (11.5-14.5)
[2022-03-29] MEDS: fentaNYL CITRATE INJ (*CRX) 100 MCG/2 ML VIAL 50 MCG IM (12:48)
[2022-03-29 12:56] LABS: Alanine Aminotransferase 28 U/L (6-50); Albumin Level 4.2 g/dL (3.5-5.1); Alkaline Phosphatase 78 U/L (38-126); Anion Gap 7 mmol/L (8-16); Aspartate Amino Transferase 21 U/L (17-59); Bilirubin,Total 0.2 mg/dL (0.2-1.3); Blood Urea Nitrogen 12 mg/dL (9-20); Calcium 8.8 mg/dL (8.4-10.2); Carbon Dioxide 28 mmol/L (22-30); Chloride 106 mmol/L (98-107); Estimated CRCL calculation 194 ml/min; Estimated Glomerular Filt Rate > 60; Glucose 92 mg/dL (65-110); Potassium 3.8 mmol/L (3.4-5.0); Sodium 141 mmol/L (137-145)
[2022-03-29 12:59] LABS: Appearance Urine Turbid (Clear); Bilirubin Urine Negative (Negative); Blood Urine 2+ (Negative); Color Urine Amber (Yellow); Glucose Urine UA 3+ mg/dL (Negative); Ketones Urine Negative (Negative); Leukocyte Esterase Ur Negative LEU/UL (Negative); Nitrate Urine Negative (Negative); Protein Urine 1+ mg/dL (Negative); Specific Grav Ur 1.025 (1.001-1.035); Urobilinogen Urine 0.2 mg/dL (<2.0); pH Urine 6.5 (5.0-9.0)
[2022-03-29 13:02] LABS: Anisocytosis 1+ (NORMAL); Hypochromasia 1+ (NORMAL); Ovalocytes 1+ (NORMAL); Platelet Estimate Adequate (Adequate)
[2022-03-29 13:04] LABS: Bacteria Urine Trace /hpf; Mucus Urine Moderate /lpf; RBC Urine >75 /hpf (0-2); Squamous Epithelial Cell Urine Many /hpf (Few); WBC Urine 31-50 /hpf
[2022-03-29 13:05] LABS: Add Urine Microscopic? YES
--- NOTE | 2022-03-29 14:41 | ED.GENADULT ---
HPI - General Adult General Chief complaint: Skin/Abscess/Foreign Body Stated complaint: swelling to groin Time Seen by Provider: 03/29/22 10:51 History of Present Illness HPI narrative: 51-year-old with a history of diabetes, hypertension, morbid obesity, PE on Xarelto here with complaints of scrotal pain since this morning. Patient denies any fever or chills. No history of trauma. He states it is very tender to touch. Related Data Home Medications Medication Instructions Recorded Confirmed insulin glargine 100 unit/mL (3 65 unit subcut BID 09/24/20 03/29/22 mL) subcutaneous pen (Basaglar KwikPen U-100 Insulin) dapagliflozin 10 mg tablet 10 mg PO DAILY 04/08/21 03/29/22 (Farxiga) docusate sodium 100 mg capsule 100 mg PO DAILY 04/08/21 03/29/22 (Colace) isosorbide mononitrate 30 mg 30 mg PO DAILY 04/08/21 03/29/22 tablet,extended release 24 hr Allergies Allergy/AdvReac Type Severity Reaction Status Date / Time gadobenic acid Allergy Severe Anaphylaxis Verified 03/29/22 10:35 [From CONTRAST-MRI] Iodinated Contrast Media Allergy Severe Anaphylaxis Verified 03/29/22 10:35 iohexol Allergy Severe Anaphylaxis Verified 03/29/22 10:35 [From CONTRAST - CT, XRAY] prochlorperazine AdvReac Severe Agitated Verified 03/29/22 10:35 morphine AdvReac Agitated Verified 03/29/22 10:35 Review of Systems Review of Systems: All systems reviewed & are unremarkable except as noted in HPI and below Constitutional: Constitutional: Reports no additional constitutional complaints Eyes: Eyes: Reports no additional eye complaints ENT: Reports system reviewed and no additional complaints, except as documented Cardiovascular: Cardiovascular: Reports no additional cardiovascular complaints Respiratory: Respiratory: Reports no additional respiratory complaints Gastrointestinal: Gastrointestinal: Reports no additional gastrointestinal complaints Genitourinary: Genitourinary: Reports as per HPI Musculoskeletal: Musculoskeletal: Reports no additional musculoskeletal complaints Neurologic: Reports system reviewed and no additional complaints, except as documented [facility] Past Medical History Medical History Bacteremia due to methicillin susceptible Staphylococcus aureus (MSSA) Associated with the affected kidney stone March 2014 Bowel obstruction Multiple bowel obstructions with most recent September 2020 Chronic lower back pain Concussion CPAP (continuous positive airway pressure) dependence CPAP pressure of 19 Diabetic gastroparesis Diastolic heart failure Diverticulitis Erectile dysfunction Essential (primary) hypertension Kidney stone Migraines Obstructive sleep apnea IRKI (obstructive sleep apnea) Peripheral neuropathy Primary insomnia Pulmonary embolism left lung following lap jae in July 2018, on Xarelto SOB (shortness of breath) T2DM (type 2 diabetes mellitus) Hemoglobin A1c 9.2 (September 2020) Surgical History Surgical History Hx of cholecystectomy laparoscopic cholecystectomy on July of 2018 Family History Family History Mother Congestive heart failure Diabetes mellitus Social History Social History Social History: Pt designates his Eula as his surrogate decision maker. Full code status. His PCP is Dr. Forde. He lives at home with his and daughter. 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 Gender identity (if verbalized by the patient): Male Sexual Orientation (if Verbalized by the Patient): Straight or Heterosexual S
== END 2022-03-29 15:15 | disposition home or self-care (01) ==
PROVIDERS: Emergency Provider Family Medicine; PCP Family Medicine
DX: N39.0 Urinary tract infection, site not specified (principal); N50.82 Scrotal pain; E11.43 Type 2 diabetes mellitus with diabetic autonomic (poly)neuropathy; E11.42 Type 2 diabetes mellitus with diabetic polyneuropathy; K31.84 Gastroparesis; I50.30 Unspecified diastolic (congestive) heart failure; I11.0 Hypertensive heart disease with heart failure; G47.33 Obstructive sleep apnea (adult) (pediatric); E66.01 Morbid (severe) obesity due to excess calories; Z68.44 Body mass index [BMI] 60.0-69.9, adult; Z86.711 Personal history of pulmonary embolism; Z87.442 Personal history of urinary calculi; Z79.01 Long term (current) use of anticoagulants; Z79.4 Long term (current) use of insulin
CPT/HCPCS: 36415; 74176; 76870; 80053; 81001; 85025; 87086; 87088; 87147; 93976; 96372; 99284; A9270; J3010